=== PATIENT | female | born 1955 | race Caucasian/White ===

== ENCOUNTER → 2018-01-03 08:46 | Outpatient (CLI) | payer OTHER, SELFPAY ==
--- NOTE | 2018-01-03 | DI.US.S_ITS ---
PROCEDURE: US CAROTID DOPPLER BI INDICATIONS: BRUIT TECHNIQUE: Color and pulse Doppler interrogation was performed of both carotid systems, with image documentation and velocity measurements. COMPARISON: None. FINDINGS: Stenosis calculations are based on SRU (Society of Radiologists in Ultrasound) criteria. Right side: Brachial blood pressure: 159/87 mm Hg. Common carotid artery peak systolic velocity: 72 cm/sec. Internal carotid artery peak systolic velocity: 116 cm/sec. Internal carotid artery end diastolic velocity: 47 cm/sec. External carotid artery peak systolic velocity: 58 cm/sec. ICA/CCA peak systolic ratio: 1.6 Bowser scale imaging description: Moderate scattered plaque. Percent internal carotid artery stenosis: Less than 50%. Vertebral artery: Flow direction is antegrade. Left side: Brachial blood pressure: 126/82 mm Hg. Common carotid artery peak systolic velocity: 55 cm/sec. Internal carotid artery peak systolic velocity: 114 cm/sec. Internal carotid artery end diastolic velocity: 42 cm/sec. External carotid artery peak systolic velocity: 113 cm/sec. ICA/CCA peak systolic ratio: 2.1. Bowser scale imaging description: Moderate scattered plaque. Percent internal carotid artery stenosis: Less than 50%. Vertebral artery: Flow direction is antegrade. IMPRESSION: Less than 50% bilateral internal carotid artery stenosis. Dictated by: Cordell Howard [facility] Interpreted: Alicia Kaiser MD on 01/03/2018 at 13:29 Approved by: Alicia Kaiser M.D. on 01/03/2018 at 15:08
== END ==
PROVIDERS: Family Provider Family Medicine; PCP Family Medicine; Visit Provider Family Medicine
DX: R09.89 Other specified symptoms and signs involving the circulatory and respiratory systems (principal)
CPT/HCPCS: 93880

== ENCOUNTER → 2018-04-17 12:54 | Outpatient (CLI) | payer OTHER, SELFPAY ==
--- NOTE | 2018-04-17 09:20 | MSW.VISIT ---
[employer] Visit note - Data of Consult Patient: new to practice Primary Care Provider: Radhika Magana MD - Consult Narrative Narrative: Rosalia Lee is a 62 year old female CC: EDGAR Sharpe - Psychological Status Stressors: Interpersonal Home Medications: Home Medications Medication Instructions Recorded Confirmed Type OMEPRAZOLE 40 mg PO BID #0 04/14/13 02/15/18 History allopurinol 300 mg PO HS #0 04/14/13 02/15/18 History hydrocodone-acetaminophen 0 PO Q4HP PRN #160 tab 11/15/16 02/15/18 Rx [DIABETIC VITAMIN PK] Q DAY #0 05/01/17 02/15/18 History potassium gluconate 99 mg PO Q DAY #0 05/01/17 02/15/18 History gabapentin [Neurontin] 300 mg PO QDAY17 #2 cap 08/22/17 02/15/18 Rx insulin glargine [Lantus Solostar 30 unit SQ HS #10 u 08/22/17 02/15/18 Rx U-100 Insulin] daptomycin [Cubicin] IV TID #0 09/17/17 02/15/18 History meclizine 25 mg PO BID #20 tab 09/17/17 02/15/18 Rx meropenem [Merrem] IV TID #0 09/17/17 02/15/18 History atorvastatin [Lipitor] 40 mg PO QDAY #0 10/30/17 02/15/18 History Allergies/Adverse Reactions: Allergies Allergy/AdvReac Type Severity Reaction Status Date / Time tetanus and diphtheria Allergy Severe HOSPITALIZED Unverified 02/15/18 14:49 toxoids CHILD [tetanus & diphtheria toxoids] metoclopramide [From REGLAN] Allergy Intermediate Tremors Unverified 02/15/18 14:49 Penicillins Allergy Mild RASH Unverified 02/15/18 14:49 ciprofloxacin AdvReac Severe ACHILLES Unverified 02/15/18 14:49 TENDON RUPTURE levofloxacin AdvReac Severe ACHILLES Unverified 02/15/18 14:49 TENDON RUPTURE
[2018-04-17 13:34] LABS: Add Manual Diff / Slide Review NO; Basophils Percent Auto 0.5 % (0-2); Eosinophils Percent Auto 1.5 % (2-4); Hematocrit 35.9 % (36-46); Hemoglobin 11.9 g/dL (12.0-16.0); Lymphocytes Percent Auto 35.3 % (25-40); Mean Corpuscular HGB Conc 33.3 % (30-36); Mean Corpuscular Hemoglobin 30.4 PG (26-34); Mean Corpuscular Volume 91.3 fL (80-100); Monocytes Percent Auto 7.2 % (3-14); Neutrophils Absolute Auto 4100 /uL (3000-5900); Neutrophils Percent Auto 55.5 % (50-75); Platelet Count 259 X10^3/uL (150-400); Red Blood Cell Count 3.93 X10^6/uL (4.0-5.2); White Blood Cell Count 7.4 X10^3/uL (4.5-11.0)
[2018-04-17 13:40] LABS: Alanine Aminotransferase 49 IU/L (9-52); Albumin Globulin Ratio 1.4 (1.0-2.8); Alkaline Phosphatase 152 U/L (38-126); Aspartate Aminotransferase 60 IU/L (14-36); BUN Creatinine Ratio 42.2 (6-22); Bilirubin Total 0.4 mg/dL (0.2-1.3); Blood Urea Nitrogen 38 mg/dL (7-17); Calcium 9.1 mg/dL (8.4-10.2); Carbon Dioxide 33 mmol/L (22-32); Chloride 99 mmol/L (98-107); Estimated Glomerular Filt Rate > 60.0 mL/min (>60); Globulin 2.8 g/dL (1.7-4.1); Glucose 188 mg/dL (80-110); HEMOLYSIS < 15 (0-50); Potassium 4.2 mmol/L (3.4-5.1); Sodium 141 mmol/L (137-145); Total Protein 6.8 g/dL (6.3-8.2)
[2018-04-18 15:10] LABS: Free Kappa Light Chain 25.1 mg/L (3.3-19.4); Free Kappa/ Lambda Ratio 1.45 (0.26-1.65); Free Lambda 17.4 mg/L (5.7-26.3)
== END ==
PROVIDERS: Family Provider Family Medicine; PCP Family Medicine; Visit Provider Nurse Practitioner Gerontology
DX: D47.2 Monoclonal gammopathy (principal)
CPT/HCPCS: 36415; 80053; 83883; 85025

== ENCOUNTER → 2018-09-02 15:19 | Outpatient (CLI) | payer OTHER, SELFPAY | PROVIDERS: Family Provider Family Medicine; PCP Family Medicine; Visit Provider Family Medicine | DX: E11.621 Type 2 diabetes mellitus with foot ulcer (principal); L97.521 Non-pressure chronic ulcer of other part of left foot limited to breakdown of skin; E11.622 Type 2 diabetes mellitus with other skin ulcer; L97.421 Non-pressure chronic ulcer of left heel and midfoot limited to breakdown of skin | CPT/HCPCS: 11042; 99213; 99214 ==

== ENCOUNTER → 2018-09-09 14:38 | Outpatient (CLI) | payer OTHER, SELFPAY | PROVIDERS: Family Provider Family Medicine; PCP Family Medicine; Visit Provider Family Medicine | DX: E11.621 Type 2 diabetes mellitus with foot ulcer (principal); L97.521 Non-pressure chronic ulcer of other part of left foot limited to breakdown of skin; E11.622 Type 2 diabetes mellitus with other skin ulcer; L97.421 Non-pressure chronic ulcer of left heel and midfoot limited to breakdown of skin | CPT/HCPCS: 97597 ==

== ENCOUNTER → 2018-09-16 11:55 | Outpatient (CLI) | payer OTHER, SELFPAY | PROVIDERS: Family Provider Family Medicine; PCP Family Medicine; Visit Provider Podiatrist Primary Podiatric Medicine | DX: E11.621 Type 2 diabetes mellitus with foot ulcer (principal); L97.521 Non-pressure chronic ulcer of other part of left foot limited to breakdown of skin | CPT/HCPCS: 97597 ==

== ENCOUNTER 2018-10-01 13:13 | Emergency (ER) | payer OTHER, SELFPAY ==
[2018-10-01] VITALS (8 sets, daily range): BP systolic 100–176; BP diastolic 57–80; PULSE 85–106; RESP 17–24; TEMP 37.7–38.4; O2SAT 90–98; BMI 36.6
--- NOTE | 2018-10-01 13:20 | DI.RAD.S_ITS ---
PROCEDURE: XR CHEST 1V INDICATIONS: chest pain TECHNIQUE: One view of the chest was acquired. COMPARISON: [facility], , CHEST 1 VIEW, 09/17/2017, 13:48. FINDINGS: Surgical changes and devices: There are cholecystectomy clips in the right upper quadrant. Lungs and pleura: Lungs are clear. No pleural effusions or pneumothorax. Mediastinum: Mediastinal contours appear normal. Heart size is borderline enlarged. Bones and chest wall: No suspicious bony lesions. Overlying soft tissues appear unremarkable. IMPRESSION: 1. No acute cardiopulmonary disease. Dictated by: Alex Chaudhary M.D. on 10/01/2018 at 14:13 Approved by: Alex Chaudhary M.D. on 10/01/2018 at 14:17
--- NOTE | 2018-10-01 13:33 | ED.CHESTPAIN ---
HPI - Chest Pain General Chief Complaint: Chest Pain Stated Complaint: CHEST PAIN Time Seen by Provider: 10/01/18 13:31 Related Data Home Medications Medication Instructions Recorded Confirmed OMEPRAZOLE 40 mg PO BID #0 04/14/13 02/15/18 allopurinol 300 mg PO HS #0 04/14/13 02/15/18 [DIABETIC VITAMIN PK] Q DAY #0 05/01/17 02/15/18 potassium gluconate 99 mg PO Q DAY #0 05/01/17 02/15/18 atorvastatin [Lipitor] 40 mg PO QDAY #0 10/30/17 02/15/18 gabapentin [Neurontin] 600 mg PO QDAY17 04/23/18 04/23/18 insulin glargine [Lantus Solostar 42 unit SQ HS 04/23/18 04/23/18 U-100 Insulin] Previous Rx's Medication Instructions Recorded hydrocodone-acetaminophen 0 PO Q4HP PRN #160 tab 11/15/16 Allergies Allergy/AdvReac Type Severity Reaction Status Date / Time tetanus and diphtheria Allergy Severe HOSPITALIZED Verified 10/01/18 13:15 toxoids CHILD [tetanus & diphtheria toxoids] metoclopramide [From REGLAN] Allergy Intermediate Tremors Verified 10/01/18 13:15 Penicillins Allergy Mild RASH Verified 10/01/18 13:15 ciprofloxacin AdvReac Severe ACHILLES Verified 10/01/18 13:15 TENDON RUPTURE levofloxacin AdvReac Severe ACHILLES Verified 10/01/18 13:15 TENDON RUPTURE PFSH Medical History Depression (Acute) Social History Smoking Status: Never smoker Social History Smoking Status: Never smoker Exam Initial Vital Signs Initial Vital Signs: Vital Signs Temperature 101.2 F H 10/01/18 13:15 Pulse Rate 105 H 10/01/18 13:15 Respiratory Rate 24 10/01/18 13:15 Blood Pressure 176/80 H 10/01/18 13:15 Pulse Oximetry 95 10/01/18 13:15 Course Orders Ordered: ED Orders 10/01/18 13:20 XR chest 1V Stat EKG-12 Lead Stat 10/01/18 13:25 Complete Blood Count AUTO DIFF Stat Comprehensive Metabolic Panel Stat Lipase Stat Partial Thromboplastin Time Stat Prothrombin Time INR Stat Troponin & CK Cardiac Panel Stat Vital Signs - 8 hr 10/01/18 13:15 Temperature 101.2 F H Pulse Rate 105 H Respiratory Rate 24 Blood Pressure 176/80 H Pulse Oximetry 95 MDM - Chest Pain Lab Data Result diagrams: 10/01/18 13:25 10/01/18 13:25 Discharge Plan Departure Prescriptions: No Action allopurinol 300 MG tablet 300 mg PO HS Qty: 0 RF: 0 OMEPRAZOLE 40 mg PO BID Qty: 0 RF: 0 hydrocodone-acetaminophen 7.5 MG/325 MG tablet PO Q4HP PRNQty: 160 RF: 0 potassium gluconate 99 MG tablet 99 mg PO Q DAY Qty: 0 RF: 0 [DIABETIC VITAMIN PK] Q DAY Qty: 0 RF: 0 atorvastatin [Lipitor] 40 MG tablet 40 mg PO QDAY Qty: 0 RF: 0 gabapentin [Neurontin] 300 MG capsule 600 mg PO QDAY17 RF: 0 insulin glargine [Lantus Solostar U-100 Insulin] 100 UNIT/1 ML insulin pen 42 unit SQ HS RF: 0 Referrals: Radhika Magana MD [Primary Care Provider] -
[2018-10-01 13:34] LABS: Add Manual Diff / Slide Review NO; Basophils Absolute Auto 0 /uL (0-100); Basophils Percent Auto 0.5 % (0-2); Eosinophils Absolute Auto 100 /uL (0-450); Eosinophils Percent Auto 0.5 % (2-4); Hematocrit 37.3 % (36-46); Lymphocytes Absolute Auto 1700 /uL (1100-4500); Lymphocytes Percent Auto 16.5 % (25-40); Mean Corpuscular HGB Conc 32.1 % (30-36); Mean Corpuscular Hemoglobin 29.2 PG (26-34); Mean Corpuscular Volume 90.7 fL (80-100); Monocytes Absolute Auto 1000 /uL (0-900); Monocytes Percent Auto 9.5 % (3-14); Neutrophils Absolute Auto 7600 /uL (1500-7000); Platelet Count 300 X10^3/uL (150-400); Red Blood Cell Count 4.11 X10^6/uL (4.0-5.2); Red Cell Distribution Width 17.2 % (11.6-14.8); White Blood Cell Count 10.4 X10^3/uL (4.5-11.0)
[2018-10-01 13:41] LABS: Prothrombin Time 11.4 SECONDS (10.1-12.7)
[2018-10-01 13:44] LABS: PTT Partial Thromboplastin Tim 30 SECONDS (26.4-36.2)
[2018-10-01 13:47] LABS: Alanine Aminotransferase 26 IU/L (9-52); Albumin 4.3 g/dL (3.5-5.0); Albumin Globulin Ratio 1.3 (1.0-2.8); Alkaline Phosphatase 139 U/L (38-126); Aspartate Aminotransferase 19 IU/L (14-36); BUN Creatinine Ratio 25.6 (6-22); Bilirubin Total 0.6 mg/dL (0.2-1.3); Blood Urea Nitrogen 23 mg/dL (7-17); Calcium 9.1 mg/dL (8.4-10.2); Carbon Dioxide 26 mmol/L (22-32); Chloride 97 mmol/L (98-107); Creatine Kinase 24 U/L (30-135); Estimated Glomerular Filt Rate > 60.0 mL/min (>60); Globulin 3.3 g/dL (1.7-4.1); Glucose 169 mg/dL (80-110); HEMOLYSIS < 15 (0-50); Lipase 13 U/L (23-300); Potassium 3.6 mmol/L (3.4-5.1); Sodium 138 mmol/L (137-145); Total Protein 7.6 g/dL (6.3-8.2)
[2018-10-01 13:55] LABS: D Dimer 396 ng/mL (<230)
[2018-10-01 13:58] LABS: Troponin I < 0.012 ng/mL (0.01-0.034)
--- NOTE | 2018-10-01 14:08 | DI.CT.S_ITS ---
PROCEDURE: CT ANGIO CHEST PE PROTOCOL INDICATIONS: sharp pain, shortness of breath, radiation to back, CA patient TECHNIQUE: After the administration of intravenous contrast, 2 mm thick sections acquired from the pulmonary apices to the posterior costophrenic angles. 3-dimensional maximum intensity projection (MIP) coronal and sagittal reformats were then acquired through the thorax. For radiation dose reduction, the following was used: automated exposure control, adjustment of mA and/or kV according to patient size. COMPARISON: [facility], CT, PELVIS WITHOUT CONTRAST, 01/05/2017, 14:02. [facility], CT, CHEST ABDOMEN PELVIS WITH CONTRAST, 05/12/2011, 8:47. [facility], CR, CHEST 1 VIEW, 09/17/2017, 13:48. FINDINGS: Image quality: Excellent. Pulmonary arteries: Pulmonary arteries are normal in size, and demonstrate no intraluminal filling defects to suggest central pulmonary embolism. Evaluation of subsegmental branches is limited by suboptimal contrast opacification. Lungs and pleura: There is mild dependent atelectasis. No focal consolidation. There is a minimal left pleural effusion. Central and peripheral airways are patent. Mediastinum: Heart size is normal, without pericardial effusion. No mediastinal or hilar adenopathy. Thoracic aorta is normal in caliber and enhancement. Esophagus is normal in caliber, without hiatal hernia. Bones and chest wall: No suspicious bony lesions. Ribs and thoracic spine appear intact throughout. Thyroid gland demonstrates no discrete nodules. No axillary or supraclavicular adenopathy. Abdomen: Visualized upper abdominal solid organs appear normal in the early arterial phase of enhancement. IMPRESSION: 1. No evidence of central pulmonary embolism, with evaluation of subsegmental branches limited by suboptimal contrast opacification. 2. Minimal left pleural effusion with mild basilar dependent atelectasis. No focal consolidation. Dictated by: Alex Chaudhary M.D. on 10/01/2018 at 14:28 Approved by: Alex Chaudhary M.D. on 10/01/2018 at 14:44
--- NOTE | 2018-10-01 15:29 | ED.CHESTPAIN ---
HPI - Chest Pain General Chief Complaint: Chest Pain Stated Complaint: CHEST PAIN Time Seen by Provider: 10/01/18 13:31 Source: patient and family Mode of arrival: ambulatory Limitations: no limitations History of Present Illness HPI narrative: 63-year-old female, nonsmoker with history of diabetes presents with her and a chief complaint of sharp and stabbing anterior chest pain with radiation to her back. This started last night and continues today. Her pain is worse with inspiration or motion. She is not dizzy nor weak or lightheaded. She denies fever or shaking chills. She does have a history of uterine cancer years ago and this seems to be her only risk for PE she denies any recent travel, injury or surgeries. MD complaint: chest pain Onset (ago): day(s) Duration: intermittent Pain location: substernal Severity: mild Quality: sharp Pain radiation: back Relieving factors: remaining still Exacerbating factors: inspiration, palpation and movement Treatments prior to arrival chest pain: none Related Data On Oral Contraceptives: No Home Medications Medication Instructions Recorded Confirmed allopurinol 300 mg PO BEDTIME #0 04/14/13 10/01/18 omeprazole 40 mg PO BID #0 04/14/13 10/01/18 [DIABETIC VITAMIN PK] Q DAY #0 05/01/17 02/15/18 potassium gluconate 99 mg PO Q DAY #0 05/01/17 02/15/18 gabapentin [Neurontin] 600 mg PO QDAY17 04/23/18 10/01/18 insulin glargine [Lantus Solostar 42 unit SQ HS 04/23/18 04/23/18 U-100 Insulin] atorvastatin 20 mg PO DAILY 10/01/18 10/01/18 estradiol [Climara] 1 patch TOPICAL WEEKLY 10/01/18 10/01/18 furosemide 20 mg PO DAILY 10/01/18 10/01/18 hydrocodone-acetaminophen 0 PO Q4HP PRN 10/01/18 insulin lispro [Humalog KwikPen 10/01/18 Insulin] tizanidine 4 mg PO DAILY 10/01/18 10/01/18 Allergies Allergy/AdvReac Type Severity Reaction Status Date / Time tetanus and diphtheria Allergy Severe HOSPITALIZED Verified 10/01/18 13:15 toxoids CHILD [tetanus & diphtheria toxoids] metoclopramide [From REGLAN] Allergy Intermediate Tremors Verified 10/01/18 13:15 Penicillins Allergy Mild RASH Verified 10/01/18 13:15 ciprofloxacin AdvReac Severe ACHILLES Verified 10/01/18 13:15 TENDON RUPTURE levofloxacin AdvReac Severe ACHILLES Verified 10/01/18 13:15 TENDON RUPTURE Review of Systems Constitutional Denies chills, Denies fever(s), Denies lethargy and Denies weakness Eyes Denies change in vision, Denies eye discharge, Denies irritation and Denies loss of vision ENT Ears, Nose, Mouth, and Throat: Denies change in voice, Denies neck pain and Denies sore throat Cardiovascular Reports chest pain, Denies irregular heart rhythm, Denies lightheadedness, Denies palpitations, Denies dyspnea, Denies dyspnea on exertion and Denies orthopnea Respiratory Denies cough, Reports pain on inspiration, Denies dyspnea, Denies dyspnea on exertion and Denies wheezing Gastrointestinal Gastrointestinal: Denies abdominal pain, Denies change in bowel habits, Denies diarrhea, Denies nausea and Denies vomiting Genitourinary Denies hematuria, Denies flank pain, Denies urinary incontinence and Denies urinary urgency Musculoskeletal Denies neck pain Integumentary/Breasts Denies pruritus, Denies erythema, Denies rash and Denies wounds Neurologic Denies confusion, Denies loss of vision and Denies weakness Psychiatric Denies anxiety, Denies confusion, Denies depression, Denies homicidal ideation and Denies suicidal ideation Endocrine Denies palpitations Hematologic/Lymphatic Denies easy bruising Allergic/Immunologic Denies wheezing PFSH Medical History Depression (Acute) Social History Smoking Status: Never smoker Social History Smoking Status: Never smoker Exam Narrative Exam Narrative: GENERAL: This is a well-nourished, well-developed patient, in mild distress. HEAD: Atraumatic. Normocephalic. No temporal or scalp tenderness. EYES: Pupils equal round and reactive. Extraocular motions intact. No scleral icterus. No injection or drainage. ENT: Nose without bleeding, purulent drainage or septal hematoma. Throat without erythema, tonsillar hypertrophy or exudate. Uvula midline. Airway patent. NECK: Trachea midline. No JVD or lymphadenopathy. Supple, nontender, no meningeal signs. CARDIOVASCULAR: Regular rate and rhythm without murmurs, gallops, or rubs. RESPIRATORY: Clear to auscultation. Breath sounds equal bilaterally. No wheezes, rales, or rhonchi. GASTROINTESTINAL: Abdomen soft, non-tender, nondistended. No hepato-splenomegaly, or palpable masses. No guarding. EXTREMITIES: No clubbing, cyanosis, or edema. No joint tenderness, effusion, or edema noted. BACK: Nontender without deformity or crepitance. No flank tenderness. NEURO: AOx3. SKIN: No rash or erythema. Initial Vital Signs Initial Vital Signs: Vital Signs Temperature 101.2 F H 10/01/18 13:15 Pulse Rate 105 H 10/01/18 13:15 Respiratory Rate 24 10/01/18 13:15 Blood Pressure 176/80 H 10/01/18 13:15 Pulse Oximetry 95 10/01/18 13:15 Scores HEART Score Heart Score history: Slightly Suspicious Heart Score EKG: Normal Heart Score Age: 45-64 years old Heart Score risk factors: 1-2 risk factors Heart Score troponin: < or = to normal limit Heart Score Total: 2 PERC Score Age greater than or equal to 50 years: Yes Heart rate greater than or equal to 100 bpm: No Room Air O2 Sat less than 95%: No Unilateral leg swelling: No Recent trauma or surgery: No Hemoptysis: No Prior PE or DVT: No Hormone Use: No Total PERC Score: 1 Wells' Criteria for PE Clinical signs and symptoms of PE: No PE is #1 Dx or equally likely: No Heart rate > 100: No Immobilization at least 3 days or surg in previous 4 weeks: No History of PE or DVT: No Hemoptysis: No Malignancy w/Treatment within 6 months or palliative: No Wells' PE Score total: 0 Course Orders Ordered: ED Orders 10/01/18 13:20 XR chest 1V Stat EKG-12 Lead Stat 10/01/18 13:25 Complete Blood Count AUTO DIFF Stat Comprehensive Metabolic Panel Stat D Dimer Stat Lipase Stat Partial Thromboplastin Time Stat Prothrombin Time INR Stat Troponin & CK Cardiac Panel Stat 10/01/18 14:08 CT angio chest PE protocol Stat 10/01/18 15:51 Influenza A and B by PCR Rapid Stat Discontinued Medications Ketorolac Tromethamine (Toradol) 15 mg IV NOW ONE Stop: 10/01/18 15:44 Last Admin: 10/01/18 15:50 Dose: 15 mg Consultations Consultation #1: Wells criteria and clinical just all to suggest low risk, patient is positive for perc and D-dimer slightly positive therefore CT angiogram order to rule out PE Vital Signs - 8 hr 10/01/18 13:15 10/01/18 13:25 10/01/18 14:30 Temperature 101.2 F H 100.5 F H Pulse Rate 105 H 106 H 91 H Respiratory Rate 24 18 19 Blood Pressure 176/80 H Blood Pressure [Left Wrist] 176/71 H 100/60 Pulse Oximetry 95 98 91 10/01/18 15:00 10/01/18 15:29 10/01/18 15:30 Temperature 99.9 F H Pulse Rate 91 H 93 H Respiratory Rate 18 19 Blood Pressure Blood Pressure [Left Wrist] 104/66 156/73 H Pulse Oximetry 91 96 10/01/18 15:50 10/01/18 16:00 Temperature 99.9 F H Pulse Rate 85 Respiratory Rate 17 Blood Pressure Blood Pressure [Left Wrist] 126/57 L Pulse Oximetry 90 L MDM - Chest Pain Medical Records Data Attestation: I reviewed the patient's medical records. Lab Data Attestation: I reviewed the patient's lab results. Result diagrams: 10/01/18 13:25 10/01/18 13:25 Lab Results 10/01/18 10/01/18 10/01/18 Range/Units 13:25 13:25 13:25 WBC 10.4 (4.5-11.0) X10^3/uL RBC 4.11 (4.0-5.2) X10^6/uL Hgb 12.0 (12.0-16.0) g/dL Hct 37.3 (36-46) % MCV 90.7 (80-100) fL MCH 29.2 (26-34) PG MCHC 32.1 (30-36) % RDW 17.2 H (11.6-14.8) % Plt Count 300 (150-400) X10^3/uL Neut % (Auto) 73.0 (50-75) % Lymph % (Auto) 16.5 L (25-40) % Emery % (Auto) 9.5 (3-14) % Eos % (Auto) 0.5 L (2-4) % Baso % (Auto) 0.5 (0-2) % Neut # (Auto) 7600 H (9981-1162) /uL Lymph # (Auto) 1700 (6172-5833) /uL Emery # (Auto) 1000 H (0-900) /uL Eos # (Auto) 100 (0-450) /uL Baso # (Auto) 0 (0-100) /uL PT 11.4 (10.1-12.7) SECONDS INR 1.0 (0.9-1.3) APTT 30 (26.4-36.2) SECONDS D-Dimer (<230) ng/mL Sodium 138 (137-145) mmol/L Potassium 3.6 (3.4-5.1) mmol/L Chloride 97 L (98-107) mmol/L Carbon Dioxide 26 (22-32) mmol/L BUN 23 H (7-17) mg/dL Creatinine 0.90 (0.52-1.04) mg/dL Estimated GFR > 60.0 (>60) mL/min BUN/Creatinine Ratio 25.6 H (6-22) Glucose 169 H (80-110) mg/dL Calcium 9.1 (8.4-10.2) mg/dL Total Bilirubin 0.6 (0.2-1.3) mg/dL AST 19 (14-36) IU/L ALT 26 (9-52) IU/L Alkaline Phosphatase 139 H (38-126) U/L Total Creatine Kinase 24 L (30-135) U/L CK-MB (CK-2) TNP CK-MB (CK-2) Rel Index TNP Troponin I < 0.012 (0.01-0.034) ng/mL Total Protein 7.6 (6.3-8.2) g/dL Albumin 4.3 (3.5-5.0) g/dL Globulin 3.3 (1.7-4.1) g/dL Albumin/Globulin Ratio 1.3 (1.0-2.8) Lipase 13 L (23-300) U/L Influenza A & B (PCR) (Negative) 10/01/18 10/01/18 Range/Units 13:25 15:51 WBC (4.5-11.0) X10^3/uL RBC (4.0-5.2) X10^6/uL Hgb (12.0-16.0) g/dL Hct (36-46) % MCV (80-100) fL MCH (26-34) PG MCHC (30-36) % RDW (11.6-14.8) % Plt Count (150-400) X10^3/uL Neut % (Auto) (50-75) % Lymph % (Auto) (25-40) % Emery % (Auto) (3-14) % Eos % (Auto) (2-4) % Baso % (Auto) (0-2) % Neut # (Auto) (0443-9913) /uL Lymph # (Auto) (9498-3829) /uL Emery # (Auto) (0-900) /uL Eos # (Auto) (0-450) /uL Baso # (Auto) (0-100) /uL PT (10.1-12.7) SECONDS INR (0.9-1.3) APTT (26.4-36.2) SECONDS D-Dimer 396 H (<230) ng/mL Sodium (137-145) mmol/L Potassium (3.4-5.1) mmol/L Chloride (98-107) mmol/L Carbon Dioxide (22-32) mmol/L BUN (7-17) mg/dL Creatinine (0.52-1.04) mg/dL Estimated GFR (>60) mL/min BUN/Creatinine Ratio (6-22) Glucose (80-110) mg/dL Calcium (8.4-10.2) mg/dL Total Bilirubin (0.2-1.3) mg/dL AST (14-36) IU/L ALT (9-52) IU/L Alkaline Phosphatase (38-126) U/L Total Creatine Kinase (30-135) U/L CK-MB (CK-2) CK-MB (CK-2) Rel Index Troponin I (0.01-0.034) ng/mL Total Protein (6.3-8.2) g/dL Albumin (3.5-5.0) g/dL Globulin (1.7-4.1) g/dL Albumin/Globulin Ratio (1.0-2.8) Lipase (23-300) U/L Influenza A & B (PCR) Negative (Negative) Urine Dip Bedside Urine Glucose 100 mg/dl Bedside Urine Ketone +/- 5 Urine Specific Ozan 1.020 Bedside Urine Occult Blood - Negative Bedside Urine pH 5.5 Bedside Urine Protein - Negative Bedside Urine Urobilinogen - Negative Bedside Urine Nitrite - Negative Bedside Urine Leukocytes - Negative Esterase Imaging Data CT scan - chest: Radiologist's impression: [address] [address] [address] Scan Report Signed Patient: Rosalia Lee MMR#: [id number] : 5Acct:[id number] Age/Sex: 63 / FDate of Service: 10/01/18 Loc: ED Accession Number: [id number] Procedure: CT angio chest PE protocol Ordering Provider: Brent Carpenter D.O. PROCEDURE: CT ANGIO CHEST PE PROTOCOL INDICATIONS: sharp pain, shortness of breath, radiation to back, CA patient TECHNIQUE: After the administration of intravenous contrast, 2 mm thick sections acquired from the pulmonary apices to the posterior costophrenic angles. 3-dimensional maximum intensity projection (MIP) coronal and sagittal reformats were then acquired through the thorax. For radiation dose reduction, the following was used: automated exposure control, adjustment of mA and/or kV according to patient size. COMPARISON: [facility], CT, PELVIS WITHOUT CONTRAST, 01/05/2017, 14:02. [facility], CT, CHEST ABDOMEN PELVIS WITH CONTRAST, 05/12/2011, 8:47. [facility], CR, CHEST 1 VIEW, 09/17/2017, 13:48. FINDINGS: Image quality: Excellent. Pulmonary arteries: Pulmonary arteries are normal in size, and demonstrate no intraluminal filling defects to suggest central pulmonary embolism. Evaluation of subsegmental branches is limited by suboptimal contrast opacification. Lungs and pleura: There is mild dependent atelectasis. No focal consolidation. There is a minimal left pleural effusion. Central and peripheral airways are patent. Mediastinum: Heart size is normal, without pericardial effusion. No mediastinal or hilar adenopathy. Thoracic aorta is normal in caliber and enhancement. Esophagus is normal in caliber, without hiatal hernia. Bones and chest wall: No suspicious bony lesions. Ribs and thoracic spine appear intact throughout. Thyroid gland demonstrates no discrete nodules. No axillary or supraclavicular adenopathy. Abdomen: Visualized upper abdominal solid organs appear normal in the early arterial phase of enhancement. IMPRESSION: 1. No evidence of central pulmonary embolism, with evaluation of subsegmental branches limited by suboptimal contrast opacification. 2. Minimal left pleural effusion with mild basilar dependent atelectasis. No focal consolidation. Dictated by: Alex Chaudhary M.D. on 10/01/2018 at 14:28 Approved by: Alex Chaudhary M.D. on 10/01/2018 at 14:44 [facility] Narrative Medical decision making narrative: Multiple etiologies for patient's symptoms considered including: [Myocardial infarction but thought less likely given nonischemic complaint, sharp and stabbing with reproduction, normal troponin and normal EKG. Pulmonary embolism considered given cancer history, pleuritic-type description of pain and shortness of breath but thought less likely given negative CT angiogram. Pneumonia considered but thought less likely given lack of findings on imaging or sputum production. Flu considered but thought less likely given lack of fever, chills, headache or sore throat Patient's symptoms improved or duration of stay with above-stated therapies. Findings and discharge diagnosis discussed with patient/family followed by verbalization of understanding Return precautions discussed with patient/family whom verbalize understanding. Discharge Plan Departure Patient Disposition: Home Clinical Impression: Chest pain, pleuritic Discharge Date/Time: 10/01/18 16:21 Interventions: ED Discharge Assessment Last Done: 10/01/18 16:20 Instructions: DI for Atypical Chest Pain Activity Restrictions/Additional Instructions: *You have been diagnosed with [ atypical, pleuritic-type chest pain ] *What to do: *Take medications as directed *Follow up with your primary care provider in 2-3 days, call for an appointment. Let them know you were seen in the Emergency Department and that we ask that you be seen in follow up *Return to ER if you should have any new, worsening or concerning symptoms, such as [worsening pain, shortness of breath, fever or shaking chills, other bothersome symptoms ] Prescriptions: No Action omeprazole 40 mg Capsule,Delayed Release(Dr/Ec) 40 mg PO BID Qty: 0 RF: 0 allopurinol 300 MG tablet 300 mg PO BEDTIME Qty: 0 RF: 0 potassium gluconate 99 MG tablet 99 mg PO Q DAY Qty: 0 RF: 0 [DIABETIC VITAMIN PK] Q DAY Qty: 0 RF: 0 gabapentin [Neurontin] 300 MG capsule 600 mg PO QDAY17 RF: 0 insulin glargine [Lantus Solostar U-100 Insulin] 100 UNIT/1 ML insulin pen 42 unit SQ HS RF: 0 atorvastatin 20 mg tablet 20 mg PO DAILY RF: 0 tizanidine 4 mg tablet 4 mg PO DAILY RF: 0 estradiol [Climara] 0.05 mg/24 hr patch weekly 1 patch Topical WEEKLY RF: 0 furosemide 20 mg tablet 20 mg PO DAILY RF: 0 Humalog KwikPen Insulin 100 unit/mL insulin pen RF: 0 hydrocodone-acetaminophen 7.5 MG/325 MG tablet PO Q4HP PRN (Reason: pain) RF: 0 Referrals: Radhika Magana MD [Primary Care Provider] -
--- NOTE | 2018-10-01 15:36 | ED_ITS ---
HPI - Chest Pain General Chief Complaint: Chest Pain Stated Complaint: CHEST PAIN Time Seen by Provider: 10/01/18 13:31 Source: patient and family Mode of arrival: ambulatory Limitations: no limitations History of Present Illness HPI narrative: 63-year-old female, nonsmoker with history of diabetes presents with her and a chief complaint of sharp and stabbing anterior chest pain with radiation to her back. This started last night and continues today. Her pain is worse with inspiration or motion. She is not dizzy nor weak or lightheaded. She denies fever or shaking chills. She does have a history of uterine cancer years ago and this seems to be her only risk for PE she denies any recent travel, injury or surgeries. MD complaint: chest pain Onset (ago): day(s) Duration: intermittent Pain location: substernal Severity: mild Quality: sharp Pain radiation: back Relieving factors: remaining still Exacerbating factors: inspiration, palpation and movement Treatments prior to arrival chest pain: none Related Data On Oral Contraceptives: No Home Medications Medication Instructions Recorded Confirmed allopurinol 300 mg PO BEDTIME #0 04/14/13 10/01/18 omeprazole 40 mg PO BID #0 04/14/13 10/01/18 [DIABETIC VITAMIN PK] Q DAY #0 05/01/17 02/15/18 potassium gluconate 99 mg PO Q DAY #0 05/01/17 02/15/18 gabapentin [Neurontin] 600 mg PO QDAY17 04/23/18 10/01/18 insulin glargine [Lantus Solostar 42 unit SQ HS 04/23/18 04/23/18 U-100 Insulin] atorvastatin 20 mg PO DAILY 10/01/18 10/01/18 estradiol [Climara] 1 patch TOPICAL WEEKLY 10/01/18 10/01/18 furosemide 20 mg PO DAILY 10/01/18 10/01/18 hydrocodone-acetaminophen 0 PO Q4HP PRN 10/01/18 insulin lispro [Humalog KwikPen 10/01/18 Insulin] tizanidine 4 mg PO DAILY 10/01/18 10/01/18 Allergies Allergy/AdvReac Type Severity Reaction Status Date / Time tetanus and diphtheria Allergy Severe HOSPITALIZED Verified 10/01/18 13:15 toxoids CHILD [tetanus & diphtheria toxoids] metoclopramide [From REGLAN] Allergy Intermediate Tremors Verified 10/01/18 13:15 Penicillins Allergy Mild RASH Verified 10/01/18 13:15 ciprofloxacin AdvReac Severe ACHILLES Verified 10/01/18 13:15 TENDON RUPTURE levofloxacin AdvReac Severe ACHILLES Verified 10/01/18 13:15 TENDON RUPTURE Review of Systems Constitutional Denies chills, Denies fever(s), Denies lethargy and Denies weakness Eyes Denies change in vision, Denies eye discharge, Denies irritation and Denies loss of vision ENT Ears, Nose, Mouth, and Throat: Denies change in voice, Denies neck pain and Denies sore throat Cardiovascular Reports chest pain, Denies irregular heart rhythm, Denies lightheadedness, Denies palpitations, Denies dyspnea, Denies dyspnea on exertion and Denies orthopnea Respiratory Denies cough, Reports pain on inspiration, Denies dyspnea, Denies dyspnea on exertion and Denies wheezing Gastrointestinal Gastrointestinal: Denies abdominal pain, Denies change in bowel habits, Denies diarrhea, Denies nausea and Denies vomiting Genitourinary Denies hematuria, Denies flank pain, Denies urinary incontinence and Denies urinary urgency Musculoskeletal Denies neck pain Integumentary/Breasts Denies pruritus, Denies erythema, Denies rash and Denies wounds Neurologic Denies confusion, Denies loss of vision and Denies weakness Psychiatric Denies anxiety, Denies confusion, Denies depression, Denies homicidal ideation and Denies suicidal ideation Endocrine Denies palpitations Hematologic/Lymphatic Denies easy bruising Allergic/Immunologic Denies wheezing PFSH Medical History Depression (Acute) Social History Smoking Status: Never smoker Social History Smoking Status: Never smoker Exam Narrative Exam Narrative: GENERAL: This is a well-nourished, well-developed patient, in mild distress. HEAD: Atraumatic. Normocephalic. No temporal or scalp tenderness. EYES: Pupils equal round and reactive. Extraocular motions intact. No scleral icterus. No injection or drainage. ENT: Nose without bleeding, purulent drainage or septal hematoma. Throat without erythema, tonsillar hypertrophy or exudate. Uvula midline. Airway patent. NECK: Trachea midline. No JVD or lymphadenopathy. Supple, nontender, no mening eal signs. CARDIOVASCULAR: Regular rate and rhythm without murmurs, gallops, or rubs. RESPIRATORY: Clear to auscultation. Breath sounds equal bilaterally. No wheezes, rales, or rhonchi. GASTROINTESTINAL: Abdomen soft, non-tender, nondistended. No hepato- splenomegaly, or palpable masses. No guarding. EXTREMITIES: No clubbing, cyanosis, or edema. No joint tenderness, effusion, or edema noted. BACK: Nontender without deformity or crepitance. No flank tenderness. NEURO: AOx3. SKIN: No rash or erythema. Initial Vital Signs Initial Vital Signs: Vital Signs Temperature 101.2 F H 10/01/18 13:15 Pulse Rate 105 H 10/01/18 13:15 Respiratory Rate 24 10/01/18 13:15 Blood Pressure 176/80 H 10/01/18 13:15 Pulse Oximetry 95 10/01/18 13:15 Scores HEART Score Heart Score history: Slightly Suspicious Heart Score EKG: Normal Heart Score Age: 45-64 years old Heart Score risk factors: 1-2 risk factors Heart Score troponin: < or = to normal limit Heart Score Total: 2 PERC Score Age greater than or equal to 50 years: Yes Heart rate greater than or equal to 100 bpm: No Room Air O2 Sat less than 95%: No Unilateral leg swelling: No Recent trauma or surgery: No Hemoptysis: No Prior PE or DVT: No Hormone Use: No Total PERC Score: 1 Wells' Criteria for PE Clinical signs and symptoms of PE: No PE is #1 Dx or equally likely: No Heart rate > 100: No Immobilization at least 3 days or surg in previous 4 weeks: No History of PE or DVT: No Hemoptysis: No Malignancy w/Treatment within 6 months or palliative: No Wells' PE Score total: 0 Course Orders Ordered: ED Orders 10/01/18 13:20 XR chest 1V Stat EKG-12 Lead Stat 10/01/18 13:25 Complete Blood Count AUTO DIFF Stat Comprehensive Metabolic Panel Stat D Dimer Stat Lipase Stat Partial Thromboplastin Time Stat Prothrombin Time INR Stat Troponin & CK Cardiac Panel Stat 10/01/18 14:08 CT angio chest PE protocol Stat 10/01/18 15:51 Influenza A and B by PCR Rapid Stat Discontinued Medications Ketorolac Tromethamine (Toradol) 15 mg IV NOW ONE Stop: 10/01/18 15:44 Last Admin: 10/01/18 15:50 Dose: 15 mg Consultations Consultation #1: Wells criteria and clinical just all to suggest low risk, patient is positive for perc and D-dimer slightly positive therefore CT angiogram order to rule out PE Vital Signs - 8 hr 10/01/18 13:15 10/01/18 13:25 10/01/18 14:30 Temperature 101.2 F H 100.5 F H Pulse Rate 105 H 106 H 91 H Respiratory Rate 24 18 19 Blood Pressure 176/80 H Blood Pressure [Left Wrist] 176/71 H 100/60 Pulse Oximetry 95 98 91 10/01/18 15:00 10/01/18 15:29 10/01/18 15:30 Temperature 99.9 F H Pulse Rate 91 H 93 H Respiratory Rate 18 19 Blood Pressure Blood Pressure [Left Wrist] 104/66 156/73 H Pulse Oximetry 91 96 10/01/18 15:50 10/01/18 16:00 Temperature 99.9 F H Pulse Rate 85 Respiratory Rate 17 Blood Pressure Blood Pressure [Left Wrist] 126/57 L Pulse Oximetry 90 L MDM - Chest Pain Medical Records Data Attestation: I reviewed the patient's medical records. Lab Data Attestation: I reviewed the patient's lab results. Result diagrams: 10/01/18 13:25 10/01/18 13:25 Lab Results 10/01/18 10/01/18 10/01/18 Range/Units 13:25 13:25 13:25 WBC 10.4 (4.5-11.0) X10^3/uL RBC 4.11 (4.0-5.2) X10^6/uL Hgb 12.0 (12.0-16.0) g/dL Hct 37.3 (36-46) % MCV 90.7 (80-100) fL MCH 29.2 (26-34) PG MCHC 32.1 (30-36) % RDW 17.2 H (11.6-14.8) % Plt Count 300 (150-400) X10^3/uL Neut % (Auto) 73.0 (50-75) % Lymph % (Auto) 16.5 L (25-40) % [place] % (Auto) 9.5 (3-14) % Eos % (Auto) 0.5 L (2-4) % Baso % (Auto) 0.5 (0-2) % Neut # (Auto) 7600 H (0159-4948) /uL Lymph # (Auto) 1700 (3668-9485) /uL [place] # (Auto) 1000 H (0-900) /uL Eos # (Auto) 100 (0-450) /uL Baso # (Auto) 0 (0-100) /uL PT 11.4 (10.1-12.7) SECONDS INR 1.0 (0.9-1.3) APTT 30 (26.4-36.2) SECONDS D-Dimer (<230) ng/mL Sodium 138 (137-145) mmol/L Potassium 3.6 (3.4-5.1) mmol/L Chloride 97 L (98-107) mmol/L Carbon Dioxide 26 (22-32) mmol/L BUN 23 H (7-17) mg/dL Creatinine 0.90 (0.52-1.04) mg/dL Estimated GFR > 60.0 (>60) mL/min BUN/Creatinine Ratio 25.6 H (6-22) Glucose 169 H (80-110) mg/dL Calcium 9.1 (8.4-10.2) mg/dL Total Bilirubin 0.6 (0.2-1.3) mg/dL AST 19 (14-36) IU/L ALT 26 (9-52) IU/L Alkaline Phosphatase 139 H (38-126) U/L Total Creatine Kinase 24 L (30-135) U/L CK-MB (CK-2) TNP CK-MB (CK-2) Rel Index TNP Troponin I < 0.012 (0.01-0.034) ng/mL Total Protein 7.6 (6.3-8.2) g/dL Albumin 4.3 (3.5-5.0) g/dL Globulin 3.3 (1.7-4.1) g/dL Albumin/Globulin Ratio 1.3 (1.0-2.8) Lipase 13 L (23-300) U/L Influenza A & B (PCR) (Negative) 10/01/18 10/01/18 Range/Units 13:25 15:51 WBC (4.5-11.0) X10^3/uL RBC (4.0-5.2) X10^6/uL Hgb (12.0-16.0) g/dL Hct (36-46) % MCV (80-100) fL MCH (26-34) PG MCHC (30-36) % RDW (11.6-14.8) % Plt Count (150-400) X10^3/uL Neut % (Auto) (50-75) % Lymph % (Auto) (25-40) % [place] % (Auto) (3-14) % Eos % (Auto) (2-4) % Baso % (Auto) (0-2) % Neut # (Auto) (8170-5973) /uL Lymph # (Auto) (0218-4914) /uL [place] # (Auto) (0-900) /uL Eos # (Auto) (0-450) /uL Baso # (Auto) (0-100) /uL PT (10.1-12.7) SECONDS INR (0.9-1.3) APTT (26.4-36.2) SECONDS D-Dimer 396 H (<230) ng/mL Sodium (137-145) mmol/L Potassium (3.4-5.1) mmol/L Chloride (98-107) mmol/L Carbon Dioxide (22-32) mmol/L BUN (7-17) mg/dL Creatinine (0.52-1.04) mg/dL Estimated GFR (>60) mL/min BUN/Creatinine Ratio (6-22) Glucose (80-110) mg/dL Calcium (8.4-10.2) mg/dL Total Bilirubin (0.2-1.3) mg/dL AST (14-36) IU/L ALT (9-52) IU/L Alkaline Phosphatase (38-126) U/L Total Creatine Kinase (30-135) U/L CK-MB (CK-2) CK-MB (CK-2) Rel Index Troponin I (0.01-0.034) ng/mL Total Protein (6.3-8.2) g/dL Albumin (3.5-5.0) g/dL Globulin (1.7-4.1) g/dL Albumin/Globulin Ratio (1.0-2.8) Lipase (23-300) U/L Influenza A & B (PCR) Negative (Negative) Urine Dip Bedside Urine Glucose 100 mg/dl Bedside Urine Ketone +/- 5 Urine Specific [place] 1.020 Bedside Urine Occult Blood - Negative Bedside Urine pH 5.5 Bedside Urine Protein - Negative Bedside Urine Urobilinogen - Negative Bedside Urine Nitrite - Negative Bedside Urine Leukocytes - Negative Esterase Imaging Data CT scan - chest: Radiologist's impression: [address] [address] [address] Scan Report Signed Patient: Rosalia Lee [facility]#: [id number] : 5Acct:[id number] Age/Sex: 63 / FDate of Service: 10/01/18 Loc: ED Accession Number: [id number] Procedure: CT angio chest PE protocol Ordering Provider: Brent Carpenter D.O. PROCEDURE: CT ANGIO CHEST PE PROTOCOL INDICATIONS: sharp pain, shortness of breath, radiation to back, CA patient TECHNIQUE: After the administration of intravenous contrast, 2 mm thick sections acquired from the pulmonary apices to the posterior costophrenic angles. 3-dimensional maximum intensity projection (MIP) coronal and sagittal reformats were then acquired through the thorax. For radiation dose reduction, the following was used: automated exposure control, adjustment of mA and/or kV according to patient size. COMPARISON: [facility], CT, PELVIS WITHOUT CONTRAST, 01/05/2017, 14:02. [facility], CT, CHEST ABDOMEN PELVIS WITH CONTRAST, 05/12/2011, 8:47. [facility], CR, CHEST 1 VIEW, 09/17/2017, 13:48. FINDINGS: Image quality: Excellent. Pulmonary arteries: Pulmonary arteries are normal in size, and demonstrate no intraluminal filling defects to suggest central pulmonary embolism. Evaluation of subsegmental branches is limited by suboptimal contrast opacification. Lungs and pleura: There is mild dependent atelectasis. No focal consolidation. There is a minimal left pleural effusion. Central and peripheral airways are patent. Mediastinum: Heart size is normal, without pericardial effusion. No mediastinal or hilar adenopathy. Thoracic aorta is normal in caliber and enhancement. Esophagus is normal in caliber, without hiatal hernia. Bones and chest wall: No suspicious bony lesions. Ribs and thoracic spine appear intact throughout. Thyroid gland demonstrates no discrete nodules. No axillary or supraclavicular adenopathy. Abdomen: Visualized upper abdominal solid organs appear normal in the early arterial phase of enhancement. IMPRESSION: 1. No evidence of central pulmonary embolism, with evaluation of subsegmental branches limited by suboptimal contrast opacification. 2. Minimal left pleural effusion with mild basilar dependent atelectasis. No focal consolidation. Dictated by: Alex Chaudhary M.D. on 10/01/2018 at 14:28 Approved by: Alex Chaudhary M.D. on 10/01/2018 at 14:44 [facility] Narrative Medical decision making narrative: Multiple etiologies for patient's symptoms considered including: [Myocardial infarction but thought less likely given nonischemic complaint, sharp and stabbing with reproduction, normal troponin and normal EKG. Pulmonary embolism considered given cancer history, pleuritic-type description of pain and shortness of breath but thought less likely given negative CT angiogram. Pneumonia considered but thought less likely given lack of findings on imaging or sputum production. Flu considered but thought less likely given lack of fever, chills, headache or sore throat Patient's symptoms improved or duration of stay with above-stated therapies. Findings and discharge diagnosis discussed with patient/family followed by verbalization of understanding Return precautions discussed with patient/family whom verbalize understanding. Discharge Plan Departure Patient Disposition: Home Clinical Impression: Chest pain, pleuritic Discharge Date/Time: 10/01/18 16:21 Interventions: ED Discharge Assessment Last Done: 10/01/18 16:20 Instructions: DI for Atypical Chest Pain Activity Restrictions/Additional Instructions: *You have been diagnosed with [ atypical, pleuritic-type chest pain ] *What to do: *Take medications as directed *Follow up with your primary care provider in 2-3 days, call for an appointment. Let them know you were seen in the Emergency Department and that we ask that you be seen in follow up *Return to ER if you should have any new, worsening or concerning symptoms, such as [worsening pain, shortness of breath, fever or shaking chills, other bothersome symptoms ] Prescriptions: No Action omeprazole 40 mg Capsule,Delayed Release(Dr/Ec) 40 mg PO BID Qty: 0 RF: 0 allopurinol 300 MG tablet 300 mg PO BEDTIME Qty: 0 RF: 0 potassium gluconate 99 MG tablet 99 mg PO Q DAY Qty: 0 RF: 0 [DIABETIC VITAMIN PK] Q DAY Qty: 0 RF: 0 gabapentin [Neurontin] 300 MG capsule 600 mg PO QDAY17 RF: 0 insulin glargine [Lantus Solostar U-100 Insulin] 100 UNIT/1 ML insulin pen 42 unit SQ HS RF: 0 atorvastatin 20 mg tablet 20 mg PO DAILY RF: 0 tizanidine 4 mg tablet 4 mg PO DAILY RF: 0 estradiol [Climara] 0.05 mg/24 hr patch weekly 1 patch Topical WEEKLY RF: 0 furosemide 20 mg tablet 20 mg PO DAILY RF: 0 Humalog KwikPen Insulin 100 unit/mL insulin pen RF: 0 hydrocodone-acetaminophen 7.5 MG/325 MG tablet PO Q4HP PRN (Reason: pain) RF: 0 Referrals: Radhika Magana MD [Primary Care Provider] -
[2018-10-01] MEDS: KETOROLAC 60 MG/2 ML VIAL 15 MG IV (15:50)
[2018-10-01 16:10] LABS: Influenza A and B by PCR Rapid Negative (Negative)
== END 2018-10-01 16:21 | disposition home or self-care (01) ==
PROVIDERS: Emergency Provider Emergency Medicine; PCP Family Medicine
DX: R07.81 Pleurodynia (principal)
CPT/HCPCS: 36591; 71045; 71275; 80053; 81003; 82550; 83690; 84484; 85025; 85379; 85610; 85730; 87400; 93005; 96374; 99284; 99285; J1885; Q9967

== ENCOUNTER → 2018-10-03 10:43 | Outpatient (CLI) | payer OTHER, SELFPAY | PROVIDERS: PCP Family Medicine; Visit Provider Anesthesiology Pain Medicine | DX: G89.29 Other chronic pain (principal) | CPT/HCPCS: 95885; 95886; 95912 ==

== ENCOUNTER → 2018-10-07 10:47 | Outpatient (CLI) | payer OTHER, SELFPAY | PROVIDERS: PCP Family Medicine; Visit Provider Podiatrist Primary Podiatric Medicine | DX: Z48.817 Encounter for surgical aftercare following surgery on the skin and subcutaneous tissue (principal); L84 Corns and callosities; E11.9 Type 2 diabetes mellitus without complications | CPT/HCPCS: 99213 ==

== ENCOUNTER → 2018-11-06 13:39 | Outpatient (CLI) | payer OTHER, SELFPAY ==
[2018-11-06 14:09] LABS: Add Manual Diff / Slide Review NO; Basophils Absolute Auto 0 /uL (0-100); Basophils Percent Auto 0.5 % (0-2); Eosinophils Absolute Auto 100 /uL (0-450); Eosinophils Percent Auto 1.9 % (2-4); Hematocrit 38.1 % (36-46); Hemoglobin 12.2 g/dL (12.0-16.0); Lymphocytes Absolute Auto 2000 /uL (1100-4500); Lymphocytes Percent Auto 30.1 % (25-40); Mean Corpuscular Hemoglobin 28.8 PG (26-34); Mean Corpuscular Volume 90.2 fL (80-100); Monocytes Absolute Auto 500 /uL (0-900); Monocytes Percent Auto 6.9 % (3-14); Neutrophils Absolute Auto 4100 /uL (1500-7000); Neutrophils Percent Auto 60.6 % (50-75); Platelet Count 263 X10^3/uL (150-400); Red Blood Cell Count 4.22 X10^6/uL (4.0-5.2); Red Cell Distribution Width 17.3 % (11.6-14.8); White Blood Cell Count 6.7 X10^3/uL (4.5-11.0)
[2018-11-06 14:39] LABS: Alanine Aminotransferase 28 IU/L (9-52); Albumin Globulin Ratio 1.4 (1.0-2.8); Alkaline Phosphatase 135 U/L (38-126); Aspartate Aminotransferase 22 IU/L (14-36); Bilirubin Total 0.4 mg/dL (0.2-1.3); Blood Urea Nitrogen 24 mg/dL (7-17); Calcium 9.3 mg/dL (8.4-10.2); Carbon Dioxide 30 mmol/L (22-32); Chloride 99 mmol/L (98-107); Estimated Glomerular Filt Rate > 60.0 mL/min (>60); Globulin 2.8 g/dL (1.7-4.1); Glucose 223 mg/dL (80-110); HEMOLYSIS < 15 (0-50); Sodium 140 mmol/L (137-145); Total Protein 6.8 g/dL (6.3-8.2)
[2018-11-06 15:25] LABS: Vitamin B12 > 1000 pg/mL (239-931)
[2018-11-08 16:32] LABS: Free Kappa Light Chain 31.5 mg/L (3.3-19.4); Free Lambda 17.5 mg/L (5.7-26.3)
[2018-11-09 08:29] LABS: Vitamin B6 53.7 ng/mL (2.1-21.7)
[2018-11-09 13:56] LABS: Albumin 3.6 g/dL (3.8-4.8); Alpha 1 Globulin 0.3 g/dL (0.2-0.3); Alpha 2 Globulin 0.9 g/dL (0.5-0.9); Beta 1 Globulin 0.5 g/dL (0.4-0.6); Gamma Globulin 0.9 g/dL (0.8-1.7); Protein, Total 6.6 g/dL (6.1-8.1)
== END ==
PROVIDERS: PCP Family Medicine; Referring Provider Anesthesiology Pain Medicine; Visit Provider Nurse Practitioner Gerontology
DX: M47.896 Other spondylosis, lumbar region (principal); G62.9 Polyneuropathy, unspecified; D47.2 Monoclonal gammopathy
CPT/HCPCS: 36415; 80053; 82306; 82607; 83735; 83883; 84155; 84165; 84207; 85025

== ENCOUNTER → 2019-01-20 11:47 | Outpatient (ROUT) | payer OTHER, SELFPAY | PROVIDERS: PCP Family Medicine; Visit Provider Family Medicine | DX: L89.309 Pressure ulcer of unspecified buttock, unspecified stage (principal) | CPT/HCPCS: 87070; 87075; 87205 ==

== ENCOUNTER → 2019-01-21 10:55 | Outpatient (CLI) | payer OTHER, SELFPAY ==
[2019-01-21 11:43] LABS: BUN Creatinine Ratio 41.1 (6-22); Blood Urea Nitrogen 37 mg/dL (7-17); Estimated Glomerular Filt Rate > 60.0 mL/min (>60)
--- NOTE | 2019-01-21 12:25 | DI.CT.S_ITS ---
PROCEDURE: CT ABDOMEN PELVIS W CON INDICATIONS: righ lower quad pain TECHNIQUE: After the administration of intravenous contrast, 5 mm thick sections acquired from the diaphragm to the symphysis. 5 mm coronal and sagittal reformats were acquired. For radiation dose reduction, the following was used: automated exposure control, adjustment of mA and/or kV according to patient size. COMPARISON: [facility], CT, PELVIS WITHOUT CONTRAST, 01/05/2017, 14:02. [facility], CT, ABDOMEN/PELVIS WITH CONTRAST, 04/26/2012, 8:45. [facility], CT, ABDOMEN/PELVIS WITHOUT CONTRAS, 06/24/2013, 11:49. [facility], [place], ABDOMEN COMPLETE, 06/23/2014, 8:32. [facility], CT, ABDOMEN/PELVIS WITH CONTRAST, 06/10/2014, 10:44. FINDINGS: Image quality: Excellent. ABDOMEN: Lung bases: Lung bases are clear. Heart size is normal. Solid organs: Mild hepatic fatty infiltration is present. Liver is normal in size and enhancement. Gallbladder is surgically absent. Mild intrahepatic biliary dilation is present. Common bile duct measures up to 14 mm. Pancreas enhances normally. Spleen is normal in size and enhancement. No adrenal nodules. Kidneys demonstrate normal size and enhancement, without hydronephrosis. There is a 1.3 mm stone in the inferior pole the right kidney. Peritoneum and bowel: Appendix is not visualized. There is no fat stranding in the right lower quadrant. Bowel loops demonstrate normal wall thickness and caliber. No free fluid or air. Nodes and vessels: No retroperitoneal or mesenteric adenopathy by size criteria. Aorta and inferior vena cava are normal in size. Miscellaneous: No ventral hernias. Surgical changes in the anterior abdominal wall are likely related to prior ventral hernia repair. PELVIS: Genitourinary: Bladder wall thickness is normal. Uterus and ovaries are not visualized. Miscellaneous: No inguinal hernias or adenopathy. Bones: No suspicious bony lesions. No vertebral body compression fractures. IMPRESSION: 1. No acute intra-abdominal process. 2. Appendix is not visualized. There is no inflammatory stranding in the right lower quadrant. 3. A non-obstructive right renal stone. 4. Intrahepatic and intrahepatic biliary dilation may be related to cholecystectomy. Please correlate with serum bilirubin. Dictated by: Eliza Dave M.D. on 01/21/2019 at 13:09 Approved by: Eliza Dave M.D. on 01/21/2019 at 13:20
== END ==
PROVIDERS: PCP Family Medicine; Visit Provider Surgery
DX: R10.31 Right lower quadrant pain (principal); N20.0 Calculus of kidney; K83.8 Other specified diseases of biliary tract; M79.9 Soft tissue disorder, unspecified; Z90.49 Acquired absence of other specified parts of digestive tract
CPT/HCPCS: 36415; 74177; 82565; 84520; Q9967

== ENCOUNTER → 2019-01-30 14:05 | Outpatient (CLI) | payer OTHER, SELFPAY | PROVIDERS: PCP Family Medicine; Visit Provider Family Medicine | DX: E11.622 Type 2 diabetes mellitus with other skin ulcer (principal) | CPT/HCPCS: 11042; 87070; 87075; 87205; 99213; 99214 ==

== ENCOUNTER → 2019-02-06 11:17 | Outpatient (CLI) | payer OTHER, SELFPAY | PROVIDERS: PCP Family Medicine; Visit Provider Family Medicine | DX: S31.819A Unspecified open wound of right buttock, initial encounter (principal); E11.622 Type 2 diabetes mellitus with other skin ulcer | CPT/HCPCS: 11042 ==

== ENCOUNTER → 2019-03-04 14:38 | Outpatient (CLI) | payer OTHER, SELFPAY | PROVIDERS: PCP Family Medicine; Visit Provider Family Medicine | DX: Z48.817 Encounter for surgical aftercare following surgery on the skin and subcutaneous tissue (principal); E11.9 Type 2 diabetes mellitus without complications | CPT/HCPCS: 99212 ==

== ENCOUNTER 2019-07-08 15:54 | Emergency (ER) | payer OTHER, SELFPAY ==
[2019-07-08 15:54] VITALS: BP 215/112; PULSE 101; RESP 16; TEMP 36.6; O2SAT 97; BMI 34.5
--- NOTE | 2019-07-08 16:34 | ED.ABDPAIN ---
HPI - Abdominal Pain General Chief Complaint: Abdominal Pain Stated Complaint: vomiting bile Time Seen by Provider: 07/08/19 16:02 Source: patient Mode of arrival: Ambulatory Limitations: no limitations History of Present Illness HPI narrative: Patient is a 64-year-old female with diabetes presenting with vomiting worse over the last 3 days. She actually states that she vomits every morning since April but it has progressively gotten worse she is unable to keep anything down. Gross has been quite variable as low was 42 as high as in the 300's. She does have some mild lower abdominal, she is a cholecystectomy, appendectomy and hysterectomy. She has had some diarrhea as well. She says that she has woken up sweating at night frequently and found that her glucose is low in the 40s. She stop taking her Humalog she is only taking Lantus. Related Data Home Medications Medication Instructions Recorded Confirmed allopurinol 300 mg PO BEDTIME #0 04/14/13 07/08/19 omeprazole 40 mg PO BID #0 04/14/13 07/08/19 Lantus Solostar U-100 Insulin 49 unit SQ BEDTIME 04/23/18 07/08/19 atorvastatin 20 mg PO DAILY 10/01/18 07/08/19 estradiol [Climara] 1 patch TOPICAL WEEKLY 10/01/18 07/08/19 furosemide 20 mg PO DAILY 10/01/18 07/08/19 insulin lispro [Humalog KwikPen 0 unit SUBCUT DIRECTED 10/01/18 07/08/19 Insulin] tizanidine 4 mg PO BEDTIME 10/01/18 07/08/19 gabapentin enacarbil [Horizant] 600 mg PO QPM 07/08/19 07/08/19 Previous Rx's Medication Instructions Recorded ondansetron 4 mg PO Q8H PRN #10 tab 07/08/19 Allergies Allergy/AdvReac Type Severity Reaction Status Date / Time tetanus and diphtheria Allergy Severe HOSPITALIZED Verified 07/08/19 16:10 toxoids CHILD [tetanus & diphtheria toxoids] metoclopramide [From REGLAN] Allergy Intermediate Tremors Verified 07/08/19 16:10 Penicillins Allergy Mild RASH Verified 07/08/19 16:10 ciprofloxacin AdvReac Severe ACHILLES Verified 07/08/19 16:10 TENDON RUPTURE levofloxacin AdvReac Severe ACHILLES Verified 07/08/19 16:10 TENDON RUPTURE Review of Systems Review of Systems Narrative: GENERAL: Denies chills, fatigue, malaise, fever, sweats, travel HEENT: Denies sinus pain, ear pain, sore throat, difficulty swallowing, neck pain RESPIRATORY: Denies dyspnea, cough, wheezing, hemoptysis, sputum. CARDIOVASCULAR: Denies chest pain, palpitations, orthopnea, edema GASTROINTESTINAL: See HPI : Denies dysuria, frequency, incontinence, hematuria, urinary retention, flank pain. MUSCULOSKELETAL: Denies weakness, joint pain, or bony pain SKIN: No rash, no erythema, no pruritus NEUROLOGIC: Denies weakness, dizziness, headache, numbness, change in speech, confusion PSYCHIATRIC: No concerning psychosocial issues. 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 HEENT: Head atraumatic,EOMI, pupils reactive, face symmetric, moist mucous membranes CARDIOVASCULAR: Regular rate and rhythm without murmurs, rubs or gallops. RESPIRATORY: Breath sounds equal bilaterally, no wheezes rales or rhonchi. ABDOMEN: Soft, mild tender lower abdominal tenderness slightly more on right EXTREMITIES: Normal range of motion, no clubbing or edema. Neurovascularly intact NEUROLOGICAL: Alert and oriented x4.Normal gait and speech. Cranial nerves II through XII grossly intact. SKIN: Warm, dry, no laceration, no petechiae, no rashes or lesions. Course Orders Ordered: ED Orders 07/08/19 16:25 Complete Blood Count AUTO DIFF Stat Comprehensive Metabolic Panel Stat Lipase Stat 07/08/19 16:46 CT abdomen pelvis w con Stat 07/08/19 17:35 Urine Culture Stat Urine Microscopic Stat Sodium Chloride (Normal Saline 0.9%) 1,000 mls @ 1,000 mls/hr IV CONT LI Last Admin: 07/08/19 16:44 Dose: 1,000 mls/hr Documented by: BTONER Discontinued Medications Ondansetron HCl (Zofran) 4 mg IV NOW ONE Stop: 07/08/19 16:36 Last Admin: 07/08/19 16:44 Dose: 4 mg Documented by: BTONER Pantoprazole Sodium (Protonix) 40 mg IV NOW ONE Stop: 07/08/19 16:36 Last Admin: 07/08/19 16:44 Dose: 40 mg Documented by: BTONER Vital Signs Vital signs: Vital Signs - 8 hr 07/08/19 15:54 07/08/19 18:51 Temperature 97.9 F Pulse Rate 101 H 88 Respiratory Rate 16 16 Blood Pressure 215/112 H Blood Pressure [Left Arm] 187/93 H Pulse Oximetry 97 95 MDM - Abdominal Pain Lab Data Attestation: I reviewed the patient's lab results. Result diagrams: 07/08/19 16:25 07/08/19 16:25 Labs: Lab Results 07/08/19 07/08/19 07/08/19 Range/Units 16:25 16:25 17:35 WBC 7.7 (4.5-11.0) X10^3/uL RBC 4.67 (4.0-5.2) X10^6/uL Hgb 14.2 (12.0-16.0) g/dL Hct 42.8 (36-46) % MCV 91.6 (80-100) fL MCH 30.5 (26-34) PG MCHC 33.3 (30-36) % RDW 17.0 H (11.6-14.8) % Plt Count 259 (150-400) X10^3/uL Neut % (Auto) 73.5 (50-75) % Lymph % (Auto) 19.5 L (25-40) % [place] % (Auto) 5.8 (3-14) % Eos % (Auto) 0.5 L (2-4) % Baso % (Auto) 0.7 (0-2) % Neut # (Auto) 5700 (5888-1719) /uL Lymph # (Auto) 1500 (6283-2067) /uL [place] # (Auto) 400 (0-900) /uL Eos # (Auto) 0 (0-450) /uL Baso # (Auto) 100 (0-100) /uL Sodium 139 (137-145) mmol/L Potassium 3.3 L (3.4-5.1) mmol/L Chloride 99 (98-107) mmol/L Carbon Dioxide 27 (22-32) mmol/L BUN 18 H (7-17) mg/dL Creatinine 0.70 (0.52-1.04) mg/dL Estimated GFR > 60.0 (>60) mL/min BUN/Creatinine Ratio 25.7 H (6-22) Glucose 247 H (80-110) mg/dL Calcium 9.7 (8.4-10.2) mg/dL Total Bilirubin 1.1 (0.2-1.3) mg/dL AST 24 (14-36) IU/L ALT 14 (<35) IU/L Alkaline Phosphatase 161 H (38-126) U/L Total Protein 8.1 (6.3-8.2) g/dL Albumin 4.7 (3.5-5.0) g/dL Globulin 3.4 (1.7-4.1) g/dL Albumin/Globulin Ratio 1.4 (1.0-2.8) Lipase 15 L (23-300) U/L Urine RBC 0-1/hpf (0-5/HPF) Urine WBC 1-5/hpf (0-5/HPF) Ur Squamous Epith Cells 5-10 /hpf H (0-5/HPF) Amorphous Sediment 1+ Urine Bacteria Few (2-10) H (None) Urine Mucus 1+ H (Negative) Ur Culture Indicated? Specimen cultured Point of care testing: Urine Dip Bedside Urine Glucose 250 mg/dl Bedside Urine Bilirubin - Negative Bedside Urine Ketone + 15 Urine Specific [place] 1.015 Bedside Urine Occult Blood +/- Bedside Urine pH 6.0 Bedside Urine Protein +/- 15 Bedside Urine Urobilinogen - Negative Bedside Urine Nitrite - Negative Bedside Urine Leukocytes +/- [address] scan - abdomen: Radiologist's impression: PROCEDURE: CT ABDOMEN PELVIS W CON INDICATIONS: ab pain vomiting TECHNIQUE: After the administration of intravenous contrast, 5 mm thick sections acquired from the diaphragm to the symphysis. 5 mm coronal and sagittal reformats were acquired. For radiation dose reduction, the following was used: automated exposure control, adjustment of mA and/or kV according to patient size. COMPARISON: [facility], CT, CT ABDOMEN PELVIS W CON, 01/21/2019, 11:54. [facility], CT, ABDOMEN/PELVIS WITH CONTRAST, 06/10/2014, 10:44. FINDINGS: Image quality: Excellent. ABDOMEN: Lung bases: Lung bases are clear. Heart size is normal. Solid organs: Liver is normal in size and enhancement. Gallbladder has been previously resected. Biliary system is non dilated. Pancreas enhances normally. Spleen is normal in size and enhancement. No adrenal nodules. Kidneys demonstrate normal size and enhancement, without hydronephrosis. There is, however, a 1.5 cm nonobstructive calculus in a posterior calyx at the right mid kidney. No ureteral calculus is found. Several distal pelvic phleboliths are incidentally noted near the course of the ureters but not within. Peritoneum and bowel: Bowel loops demonstrate normal wall thickness and caliber. No free fluid or air. Nodes and vessels: No retroperitoneal or mesenteric adenopathy by size criteria. Aorta and inferior vena cava are normal in size. Miscellaneous: No ventral hernias. PELVIS: Genitourinary: Bladder wall thickness is normal. Prior hysterectomy. Miscellaneous: No inguinal hernias or adenopathy. Bones: No suspicious bony lesions. No vertebral body compression fractures. IMPRESSION: A definite source of new onset abdominal pain is not seen. 1.5 cm nonobstructed right mid renal calculus is incidentally noted. This conceivably could cause abdominal pain without obstruction, however. Prior cholecystectomy. Prior hysterectomy. No underlying infection or neoplasm suspected. Dictated by: Manny Waller M.D. on 07/08/2019 at 17:41 MDM Narrative Medical decision making narrative: The patient overall is feeling better. No nausea or vomiting in the ED. CT abdomen negative blood work overall reassuring glucose mildly elevated in the 200s. I recommend that she document her glucose numbers her Lantus dose may need to be adjusted. Vomiting may be due to gastroparesis or viral syndrome. However vomiting daily since April may require further evaluation which I did discuss with her. She understands that she needs to follow up with PCP. Discharge Plan Departure Patient Disposition: Home Clinical Impression: Gastroparesis Instructions: DI for Viral Gastroenteritis -- Adult, Gastroparesis Activity Restrictions/Additional Instructions: *You have been diagnosed with either virus gastroenteritis or gastroparesis *What to do: Increase fluid intake as tolerated small sips frequently Your insulin may need to be adjusted please keep track of your glucose and speak with your provider about this *Continue to take medications as directed Zofran 4 mg every 8 hours if needed for nausea or vomiting *Follow up with your primary care provider in 2-3 days *Return to ER if you should have persistent vomiting increasing abdominal pain, persistently low glucose or significantly elevated glucose or any new, worsening or concerning symptoms Prescriptions: New ondansetron 4 mg tablet,disintegrating 4 mg PO Q8H PRN (Reason: nausea and vomiting) Qty: 10 RF: 0 No Action omeprazole 40 mg Capsule,Delayed Release(Dr/Ec) 40 mg PO BID Qty: 0 RF: 0 allopurinol 300 MG tablet 300 mg PO BEDTIME Qty: 0 RF: 0 Lantus Solostar U-100 Insulin 100 UNIT/1 ML insulin pen 49 unit SQ BEDTIME RF: 0 atorvastatin 20 mg tablet 20 mg PO DAILY RF: 0 tizanidine 4 mg tablet 4 mg PO BEDTIME RF: 0 estradiol [Climara] 0.05 mg/24 hr patch weekly 1 patch Topical WEEKLY RF: 0 furosemide 20 mg tablet 20 mg PO DAILY RF: 0 insulin lispro [Humalog KwikPen Insulin] 100 unit/mL insulin pen 0 unit subcut DIRECTED RF: 0 Horizant 600 mg Tablet Extended Release 600 mg PO QPM RF: 0 Referrals: Radhika Magana MD [Primary Care Provider] -
[2019-07-08] MEDS: SODIUM CHLORIDE 0.9% 1,000 ML 1000 ML IV (16:44)
[2019-07-08] MEDS: PANTOPRAZOLE 40 MG VIAL IV (16:44)
[2019-07-08] MEDS: ONDANSETRON 4 MG/2 ML INJ IV (16:44)
--- NOTE | 2019-07-08 16:46 | DI.CT.S_ITS ---
PROCEDURE: CT ABDOMEN PELVIS W CON INDICATIONS: ab pain vomiting TECHNIQUE: After the administration of intravenous contrast, 5 mm thick sections acquired from the diaphragm to the symphysis. 5 mm coronal and sagittal reformats were acquired. For radiation dose reduction, the following was used: automated exposure control, adjustment of mA and/or kV according to patient size. COMPARISON: [facility], CT, CT ABDOMEN PELVIS W CON, 01/21/2019, 11:54. [facility], CT, ABDOMEN/PELVIS WITH CONTRAST, 06/10/2014, 10:44. FINDINGS: Image quality: Excellent. ABDOMEN: Lung bases: Lung bases are clear. Heart size is normal. Solid organs: Liver is normal in size and enhancement. Gallbladder has been previously resected. Biliary system is non dilated. Pancreas enhances normally. Spleen is normal in size and enhancement. No adrenal nodules. Kidneys demonstrate normal size and enhancement, without hydronephrosis. There is, however, a 1.5 cm nonobstructive calculus in a posterior calyx at the right mid kidney. No ureteral calculus is found. Several distal pelvic phleboliths are incidentally noted near the course of the ureters but not within. Peritoneum and bowel: Bowel loops demonstrate normal wall thickness and caliber. No free fluid or air. Nodes and vessels: No retroperitoneal or mesenteric adenopathy by size criteria. Aorta and inferior vena cava are normal in size. Miscellaneous: No ventral hernias. PELVIS: Genitourinary: Bladder wall thickness is normal. Prior hysterectomy. Miscellaneous: No inguinal hernias or adenopathy. Bones: No suspicious bony lesions. No vertebral body compression fractures. IMPRESSION: A definite source of new onset abdominal pain is not seen. 1.5 cm nonobstructed right mid renal calculus is incidentally noted. This conceivably could cause abdominal pain without obstruction, however. Prior cholecystectomy. Prior hysterectomy. No underlying infection or neoplasm suspected. Dictated by: Manny Waller M.D. on 07/08/2019 at 17:41 Approved by: Manny Waller M.D. on 07/08/2019 at 17:43
[2019-07-08 16:48] LABS: Add Manual Diff / Slide Review NO; Basophils Absolute Auto 100 /uL (0-100); Basophils Percent Auto 0.7 % (0-2); Eosinophils Absolute Auto 0 /uL (0-450); Eosinophils Percent Auto 0.5 % (2-4); Hematocrit 42.8 % (36-46); Hemoglobin 14.2 g/dL (12.0-16.0); Lymphocytes Absolute Auto 1500 /uL (1100-4500); Lymphocytes Percent Auto 19.5 % (25-40); Mean Corpuscular HGB Conc 33.3 % (30-36); Mean Corpuscular Hemoglobin 30.5 PG (26-34); Mean Corpuscular Volume 91.6 fL (80-100); Monocytes Absolute Auto 400 /uL (0-900); Monocytes Percent Auto 5.8 % (3-14); Neutrophils Absolute Auto 5700 /uL (1500-7000); Neutrophils Percent Auto 73.5 % (50-75); Platelet Count 259 X10^3/uL (150-400); Red Blood Cell Count 4.67 X10^6/uL (4.0-5.2); White Blood Cell Count 7.7 X10^3/uL (4.5-11.0)
[2019-07-08 16:55] LABS: Alanine Aminotransferase 14 IU/L (<35); Albumin 4.7 g/dL (3.5-5.0); Albumin Globulin Ratio 1.4 (1.0-2.8); Alkaline Phosphatase 161 U/L (38-126); Aspartate Aminotransferase 24 IU/L (14-36); BUN Creatinine Ratio 25.7 (6-22); Bilirubin Total 1.1 mg/dL (0.2-1.3); Blood Urea Nitrogen 18 mg/dL (7-17); Calcium 9.7 mg/dL (8.4-10.2); Carbon Dioxide 27 mmol/L (22-32); Chloride 99 mmol/L (98-107); Estimated Glomerular Filt Rate > 60.0 mL/min (>60); Globulin 3.4 g/dL (1.7-4.1); Glucose 247 mg/dL (80-110); HEMOLYSIS < 15 (0-50); Lipase 15 U/L (23-300); Potassium 3.3 mmol/L (3.4-5.1); Sodium 139 mmol/L (137-145); Total Protein 8.1 g/dL (6.3-8.2)
--- NOTE | 2019-07-08 17:34 | PC.NURSE ---
pt stated when back from CT she felt heaviness, nauseated and needed to use the restroom. pt lied in bed for 5 min, then got up to ambulating to the restroom, steady gait. when back to room pt states feeling better.
[2019-07-08 17:54] LABS: Amorphous Sediment Urine 1+; Bacteria Urine Few (2-10); Culture Indicated Urine Specimen Cultured; Mucus Urine 1+ (Negative); RBC Urine 0-1/HPF (0-5/HPF); Squamous Epithelial Cell Urine 5-10 /HPF (0-5/HPF); WBC Urine 1-5/HPF (0-5/HPF)
[2019-07-08 18:51] VITALS: BP 187/93; PULSE 88; RESP 16; O2SAT 95
== END 2019-07-08 19:21 | disposition home or self-care (01) ==
PROVIDERS: Emergency Provider Emergency Medicine; Family Provider Family Medicine; PCP Family Medicine
DX: E11.43 Type 2 diabetes mellitus with diabetic autonomic (poly)neuropathy (principal); K31.84 Gastroparesis; Z79.4 Long term (current) use of insulin
CPT/HCPCS: 74177; 80053; 81003; 81015; 83690; 85025; 87086; 96361; 96374; 96375; 99283; 99284; C9113; J2405; Q9967

== ENCOUNTER → 2019-12-15 10:12 | Outpatient (CLI) | payer OTHER, SELFPAY ==
[2019-12-15 10:38] LABS: Add Manual Diff / Slide Review NO; Basophils Absolute Auto 100 /uL (0-100); Eosinophils Absolute Auto 200 /uL (0-450); Eosinophils Percent Auto 2.2 % (2-4); Hematocrit 39.7 % (36-46); Hemoglobin 12.5 g/dL (12.0-16.0); Lymphocytes Absolute Auto 3100 /uL (1100-4500); Lymphocytes Percent Auto 33.6 % (25-40); Mean Corpuscular HGB Conc 31.5 % (30-36); Mean Corpuscular Hemoglobin 29.9 PG (26-34); Mean Corpuscular Volume 94.9 fL (80-100); Monocytes Absolute Auto 800 /uL (0-900); Monocytes Percent Auto 8.5 % (3-14); Neutrophils Absolute Auto 5000 /uL (1500-7000); Neutrophils Percent Auto 54.7 % (50-75); Platelet Count 301 X10^3/uL (150-400); Red Blood Cell Count 4.18 X10^6/uL (4.0-5.2); Red Cell Distribution Width 16.2 % (11.6-14.8); White Blood Cell Count 9.2 X10^3/uL (4.5-11.0)
[2019-12-15 10:51] LABS: Alanine Aminotransferase 24 IU/L (<35); Albumin 4.2 g/dL (3.5-5.0); Albumin Globulin Ratio 1.3 (1.0-2.8); Alkaline Phosphatase 178 U/L (38-126); Aspartate Aminotransferase 38 IU/L (14-36); Bilirubin Total 0.6 mg/dL (0.2-1.3); Blood Urea Nitrogen 22 mg/dL (7-17); Calcium 9.6 mg/dL (8.4-10.2); Carbon Dioxide 30 mmol/L (22-32); Chloride 103 mmol/L (98-107); Estimated Glomerular Filt Rate 52.8 mL/min (>60); Globulin 3.2 g/dL (1.7-4.1); Glucose 89 mg/dL (80-110); HEMOLYSIS < 15 (0-50); Sodium 144 mmol/L (137-145); Total Protein 7.4 g/dL (6.3-8.2)
[2020-02-29 13:53] LABS: Free Kappa Lt Chains, Serum 32.9; Free Lambda Lt Chains,Serum 18.5
== END ==
PROVIDERS: Family Provider Family Medicine; PCP Family Medicine; Referring Provider Internal Medicine Hematology & Oncology; Visit Provider Internal Medicine Hematology & Oncology
DX: D47.2 Monoclonal gammopathy (principal)
CPT/HCPCS: 36415; 80053; 83883; 85025

== ENCOUNTER → 2019-12-25 15:00 | Oncology outpatient (ONC) | payer OTHER, SELFPAY ==
[2018-04-23 14:51] VITALS: BP 125/85; PULSE 72; RESP 18; TEMP 37; O2SAT 98
--- NOTE | 2018-04-23 15:31 | ONC.APRN.PN ---
Assessment and Plan (1) Monoclonal gammopathy of undetermined significance Current visit: Yes Status: Acute 04/23/18 15:33 The patient is a 63 year old Female who is being seen in the clinic 04/23/2018. 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 No clinical signs or symptoms of disease progression on exam today. Additionally, CBC, CMP also free light chains remain unremarkable. Patient has noticed overall substantial improvement in her health since drastically reducing her carbohydrate intake also trying to exercise more. Return to clinic in 6 months time for provider visit, CBC, CMP, free light chain,SPEP, paraprotein - Time Spent with Patient 30 mins PN -Subjective Interval history: The patient is a 63 year old Female who is being seen in the clinic 04/23/2018. 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 Patient presents today for her 6 month clinical evaluation. During interval she is done well. She continues to show slow but improvement on her right foot. She also essentially cut out all carbohydrates from her diet and reports improvement in her hemoglobin A1c levels. Remainder of her review of systems today was negative for any unusual infections or focal bone pains. No recent illnesses. Seeing physical therapy for some vertigo and sacral iliac joint pain. Getting better. Past Medical History The patient's past medical history is significant for: 1) light chain - MGUS Diagnosis: 02/28/2013. Free light chain assay: [place] light chain at 31.4. Lambda light chain at 18.9. [place]/Lambda ratio of 1.66. Serum protein electrophoresis without evidence of a detectable paraprotein. 2. Hypertension. 3. Diabetes. 4. Hypercholesterolemia. 5. Anxiety. 6. Gout. Results - Imaging Additional studies: Procedures Excisional debridement of wound, infection, or burn (12/26/13) Injection or infusion of other therapeutic or prophylactic substance (05/07/14) Nonexcisional debridement of wound, infection or burn (12/26/13) Other endoscopy of small intestine (10/20/11) Venous catheterization, not elsewhere classified (12/26/13) Home Medications and Allergies Home Medications Medication Instructions Recorded Confirmed Type OMEPRAZOLE 40 mg PO BID #0 04/14/13 02/15/18 History allopurinol 300 mg PO HS #0 04/14/13 02/15/18 History hydrocodone-acetaminophen 0 PO Q4HP PRN #160 tab 11/15/16 02/15/18 Rx [DIABETIC VITAMIN PK] Q DAY #0 05/01/17 02/15/18 History potassium gluconate 99 mg PO Q DAY #0 05/01/17 02/15/18 History atorvastatin [Lipitor] 40 mg PO QDAY #0 10/30/17 02/15/18 History gabapentin [Neurontin] 600 mg PO QDAY17 04/23/18 04/23/18 History insulin glargine [Lantus Solostar 42 unit SQ HS 04/23/18 04/23/18 History U-100 Insulin] Allergies Allergy/AdvReac Type Severity Reaction Status Date / Time tetanus and diphtheria Allergy Severe HOSPITALIZED Unverified 02/15/18 14:49 toxoids CHILD [tetanus & diphtheria toxoids] metoclopramide [From REGLAN] Allergy Intermediate Tremors Unverified 02/15/18 14:49 Penicillins Allergy Mild RASH Unverified 02/15/18 14:49 ciprofloxacin AdvReac Severe ACHILLES Unverified 02/15/18 14:49 TENDON RUPTURE levofloxacin AdvReac Severe ACHILLES Unverified 02/15/18 14:49 TENDON RUPTURE Exam Vital signs: Last Vital Signs Temp 98.6 F 04/23/18 14:51 Pulse 72 04/23/18 14:51 Resp 18 04/23/18 14:51 BP 125/85 04/23/18 14:51 Pulse Ox 98 04/23/18 14:51 - Constitutional positive no acute distress - Routine HEENT Exam Eye: Present: conjunctivae pink. Absent: conjunctival icterus, scleral injection ENT: Present: mucous membranes moist, oropharynx clear - Routine Neck Exam Present: supple. Absent: lymphadenopathy - Routine Respiratory Exam Present: Clear to auscultation bilaterally. Absent: rales, rhonchi, wheezes - Routine Cardiovascular Exam Present: RRR, S1, S2, murmur. Absent: gallop, rubs, JVD - Routine Abdominal Exam Present: soft, normoactive bowel sounds. Absent: tenderness, distended, organomegaly, mass Comments: large pannus - Routine Extremities Exam Absent: edema, calf tenderness - Routine Skin Exam Present: intact, normal turgor. Absent: petechiae, rash - Routine Neurological Exam Present: alert, oriented X3 - Routine Psychiatric Exam Present: normal affect
--- NOTE | 2018-04-23 15:36 | P.PNONC_ITS ---
Assessment and Plan (1) Monoclonal gammopathy of undetermined significance Current visit: Yes Status: Acute 04/23/18 15:33 The patient is a 63 year old Female who is being seen in the clinic 04/23/2018. 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 No clinical signs or symptoms of disease progression on exam today. Additionally, CBC, CMP also free light chains remain unremarkable. Patient has noticed overall substantial improvement in her health since drastically reducing her carbohydrate intake also trying to exercise more. Return to clinic in 6 months time for provider visit, CBC, CMP, free light chain ,SPEP, paraprotein - Time Spent with Patient 30 mins PN -Subjective Interval history: The patient is a 63 year old Female who is being seen in the clinic 04/23/2018. 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 Patient presents today for her 6 month clinical evaluation. During interval she is done well. She continues to show slow but improvement on her right foot. She also essentially cut out all carbohydrates from her diet and reports improvement in her hemoglobin A1c levels. Remainder of her review of systems today was negative for any unusual infections or focal bone pains. No recent illnesses. Seeing physical therapy for some vertigo and sacral iliac joint pain. Getting better. Past Medical History The patient's past medical history is significant for: 1) light chain - MGUS Diagnosis: 02/28/2013. Free light chain assay: [place] light chain at 31.4. Lambda light chain at 18.9. [place]/Lambda ratio of 1.66. Serum protein electrophoresis without evidence of a detectable paraprotein. 2. Hypertension. 3. Diabetes. 4. Hypercholesterolemia. 5. Anxiety. 6. Gout. Results - Imaging Additional studies: Procedures Excisional debridement of wound, infection, or burn (12/26/13) Injection or infusion of other therapeutic or prophylactic substance (05/07/14) Nonexcisional debridement of wound, infection or burn (12/26/13) Other endoscopy of small intestine (10/20/11) Venous catheterization, not elsewhere classified (12/26/13) Home Medications and Allergies Home Medications Medication Instructions Recorded Confirmed Type OMEPRAZOLE 40 mg PO BID #0 04/14/13 02/15/18 History allopurinol 300 mg PO HS #0 04/14/13 02/15/18 History hydrocodone-acetaminophen 0 PO Q4HP PRN #160 tab 11/15/16 02/15/18 Rx [DIABETIC VITAMIN PK] Q DAY #0 05/01/17 02/15/18 History potassium gluconate 99 mg PO Q DAY #0 05/01/17 02/15/18 History atorvastatin [Lipitor] 40 mg PO QDAY #0 10/30/17 02/15/18 History gabapentin [Neurontin] 600 mg PO QDAY17 04/23/18 04/23/18 History insulin glargine [Lantus Solostar 42 unit SQ HS 04/23/18 04/23/18 History U-100 Insulin] Allergies Allergy/AdvReac Type Severity Reaction Status Date / Time tetanus and diphtheria Allergy Severe HOSPITALIZED Unverified 02/15/18 14:49 toxoids CHILD [tetanus & diphtheria toxoids] metoclopramide [From REGLAN] Allergy Intermediate Tremors Unverified 02/15/18 14 :49 Penicillins Allergy Mild RASH Unverified 02/15/18 14:49 ciprofloxacin AdvReac Severe ACHILLES Unverified 02/15/18 14:49 TENDON RUPTURE levofloxacin AdvReac Severe ACHILLES Unverified 02/15/18 14:49 TENDON RUPTURE Exam Vital signs: Last Vital Signs Temp 98.6 F 04/23/18 14:51 Pulse 72 04/23/18 14:51 Resp 18 04/23/18 14:51 BP 125/85 04/23/18 14:51 Pulse Ox 98 04/23/18 14:51 - Constitutional positive no acute distress - Routine HEENT Exam Eye: Present: conjunctivae pink. Absent: conjunctival icterus, scleral injection ENT: Present: mucous membranes moist, oropharynx clear - Routine Neck Exam Present: supple. Absent: lymphadenopathy - Routine Respiratory Exam Present: Clear to auscultation bilaterally. Absent: rales, rhonchi, wheezes - Routine Cardiovascular Exam Present: RRR, S1, S2, murmur. Absent: gallop, rubs, JVD - Routine Abdominal Exam Present: soft, normoactive bowel sounds. Absent: tenderness, distended, organomegaly, mass Comments: large pannus - Routine Extremities Exam Absent: edema, calf tenderness - Routine Skin Exam Present: intact, normal turgor. Absent: petechiae, rash - Routine Neurological Exam Present: alert, oriented X3 - Routine Psychiatric Exam Present: normal affect
[2018-11-19 14:10] VITALS: BP 145/68; PULSE 75; RESP 18; TEMP 37; O2SAT 99
--- NOTE | 2018-11-19 14:16 | P.PNONC_ITS ---
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 Since her last visit here, she generally well. She denies any new aches or pains but has been bothered by a chronic neuropathy that is been stable. She denies any fevers chills or sweats. Appetite and energy level have been good. No shortness of breath or cough. No GI complaints. She has not the adenopathy. She denies any other changes in her health. Past Medical History The patient's past medical history is significant for: 1) light chain - MGUS Diagnosis: 02/28/2013. Free light chain assay: [place] light chain at 31.4. Lambda light chain at 18.9. [place]/Lambda ratio of 1.66. Serum protein electrophoresis witho ut evidence of a detectable paraprotein. 2. Hypertension. 3. Diabetes. 4. Hypercholesterolemia. 5. Anxiety. 6. Gout She also has a history of a B12 deficiency: A endometrial cancer, history of osteomyelitis. She is status post surgical resection of a bone in her foot. She has peripheral neuropathy likely related to her diabetes.. - Patient Self-Reported Symptoms SR Musculoskeletal issues: Muscle weakness, Muscle pain or cramps, Difficulty walking, Bone pain SR Neuro issues: Numbness or tingling, Difficulty balancing Home Medications and Allergies Home Medications Medication Instructions Recorded Confirmed Type allopurinol 300 mg PO BEDTIME #0 04/14/13 10/01/18 History omeprazole 40 mg PO BID #0 04/14/13 10/01/18 History [DIABETIC VITAMIN PK] Q DAY #0 05/01/17 02/15/18 History potassium gluconate 99 mg PO Q DAY #0 05/01/17 02/15/18 History Lantus Solostar U-100 Insulin 42 unit SQ HS 04/23/18 04/23/18 History gabapentin [Neurontin] 600 mg PO QDAY17 04/23/18 10/01/18 History atorvastatin 20 mg PO DAILY 10/01/18 10/01/18 History estradiol [Climara] 1 patch TOPICAL WEEKLY 10/01/18 10/01/18 History furosemide 20 mg PO DAILY 10/01/18 10/01/18 History hydrocodone-acetaminophen 0 PO Q4HP PRN 10/01/18 History insulin lispro [Humalog KwikPen 10/01/18 History Insulin] tizanidine 4 mg PO DAILY 10/01/18 10/01/18 History Allergies Allergy/AdvReac Type Severity Reaction Status Date / Time tetanus and diphtheria Allergy Severe HOSPITALIZED Verified 10/01/18 13:15 toxoids CHILD [tetanus & diphtheria toxoids] metoclopramide [From REGLAN] Allergy Intermediate Tremors Verified 10/01/18 13:15 Penicillins Allergy Mild RASH Verified 10/01/18 13:15 ciprofloxacin AdvReac Severe ACHILLES Verified 10/01/18 13:15 TENDON RUPTURE levofloxacin AdvReac Severe ACHILLES Verified 10/01/18 13:15 TENDON RUPTURE Exam Vital signs: Vital Signs Temp Pulse Resp BP Pulse Ox 11/19/18 14:10 98.6 F 75 18 145/68 H 99 Intake and Output 11/18/18 11/19/18 11/19/18 23:59 07:59 15:59 Other: Weight 92.7 kg Patient Weight 11/19/18 23:59 Weight 92.7 kg - Constitutional positive no acute distress, positive obese - Routine HEENT Exam Head: Present: normocephalic, atraumatic Eye: Present: EOMI, PERRL. Absent: conjunctival icterus, scleral injection ENT: Present: mucous membranes moist, oropharynx clear - Routine Neck Exam Present: supple. Absent: lymphadenopathy, thyromegaly - Routine Respiratory Exam Present: Clear to auscultation bilaterally. Absent: rales, wheezes - Routine Cardiovascular Exam Present: RRR, S1, S2. Absent: murmur - Routine Abdominal Exam Present: soft, normoactive bowel sounds. Absent: tenderness, organomegaly, mass - Routine Extremities Exam Absent: cyanosis, clubbing, edema - Routine Back/Spine Exam Back/Spine: Absent: paraspinal tenderness, vertebral tenderness - Routine Skin Exam Present: intact. Absent: petechiae, rash - Routine Neurological Exam Present: alert, oriented X3 - Routine Psychiatric Exam Present: normal affect, normal thought process Results - Imaging Additional studies: Procedures Excisional debridement of wound, infection, or burn (12/26/13) Injection or infusion of other therapeutic or prophylactic substance (05/07/14) Nonexcisional debridement of wound, infection or burn (12/26/13) Other endoscopy of small intestine (10/20/11) Venous catheterization, not elsewhere classified (12/26/13) Assessment and Plan (1) Monoclonal gammopathy of undetermined significance Current visit: Yes Status: Acute 63-year-old woman with a longstanding history of MGUS. She has no evidence of anemia, renal insufficiency or hypercalcemia. Her kappa light chains have been very stable over the last several years. She has no evidence of progression and no symptoms related to her gammopathy. I think she is at very low risk for progression. She will return to clinic in 1 year for follow-up.
--- NOTE | 2019-11-18 15:48 | PC.NURSE ---
CALL FROM STATING PATIENT HAVING STOMACH PAINS RELATED TO HER GASTRIC PARESIS, MIGRAINE LIKE HEADACHE WITH NAUSEAU AND SOME VERTIGO - ALL SYMPTOMS HE STATES WHICH SHE HAS A HISTORY OF. THIS NURSE ASKED TO CALL PATIENT'S PRIMARY FOR FURTHER INSTRUCTION/ASSISTANCE.
--- NOTE | 2019-12-25 15:39 | P.PNONC_ITS ---
PN -Subjective Interval history: ID/CC: 64 year old with 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 Since then patient has been on active surveillance. Since her previous visit, patient overall has been doing well without any new events except that probably in August or September of 2019, patient sustained a heart attack. She was evaluated and treated at [facility] and underwent stent placement. Patient otherwise denies any new musculoskeletal pain. Denies shortness of breath or chest pain. Denies abdominal pain, diarrhea, or constipation. - Patient Self-Reported Symptoms SR Musculoskeletal issues: Muscle weakness, Muscle pain or cramps, Difficulty walking, Bone pain SR Neuro issues: Numbness or tingling, Difficulty balancing - Additional ROS All systems PM: reviewed and no additional remarkable complaints except as stated (Those mentioned in HIstory of Present Illness, Interval History and Patient Self-Reported Symptoms.) Home Medications and Allergies Home Medications Medication Instructions Recorded Confirmed Type allopurinol 300 mg PO BEDTIME #0 04/14/13 07/08/19 History omeprazole 40 mg PO BID #0 04/14/13 07/08/19 History Lantus Solostar U-100 Insulin 49 unit SQ BEDTIME 04/23/18 07/08/19 History atorvastatin 40 mg PO DAILY 10/01/18 07/08/19 History furosemide 20 mg PO DAILY 10/01/18 07/08/19 History insulin lispro [Humalog KwikPen 0 unit SUBCUT DIRECTED 10/01/18 07/08/19 History Insulin] gabapentin enacarbil [Horizant] 600 mg PO QPM 07/08/19 07/08/19 History amlodipine 5 mg PO DAILY 12/25/19 12/25/19 History aspirin 81 mg PO DAILY 12/25/19 12/25/19 History clopidogrel 75 mg PO DAILY 12/25/19 12/25/19 History metoprolol succinate 100 mg PO DAILY 12/25/19 12/25/19 History pantoprazole 40 mg PO DAILY 12/25/19 12/25/19 History Allergies Allergy/AdvReac Type Severity Reaction Status Date / Time tetanus and diphtheria Allergy Severe HOSPITALIZED Verified 07/08/19 16:10 toxoids CHILD [tetanus & diphtheria toxoids] metoclopramide [From REGLAN] Allergy Intermediate Tremors Verified 07/08/19 16:10 Penicillins Allergy Mild RASH Verified 07/08/19 16:10 ciprofloxacin AdvReac Severe ACHILLES Verified 07/08/19 16:10 TENDON RUPTURE levofloxacin AdvReac Severe ACHILLES Verified 07/08/19 16:10 TENDON RUPTURE Exam Vital signs: 12/25/19 15:58 Last Vital Signs Temp 97.8 F 12/25/19 15:41 Pulse 85 12/25/19 15:41 Resp 16 12/25/19 15:41 BP 150/73 H 12/25/19 15:41 Pulse Ox 96 12/25/19 15:41 Narrative: ECOG 1 Vitals above reviewed Constitutional: well developed, and well nourished, and well groomed, not in any acute respiratory distress, pleasant and cooperative. HEENT: NCAT, EOMI, PERRLA. Anicteric sclera. Neck: Supple and symmetrical, no palpable masses. No palpable thyromegaly. Respiratory: No use of accessory muscles. CTAB, no wheezes. Cardiovascular: RRR, S1 and S2 normal, 3/6 SM at aortic area. No edema of lower extremities. Abdomen: Soft, NTND, no palpable masses. No palpable hepatosplenomegaly. No hernia. Lymphatic: no palpable palpable lymph nodes in the neck, axillae Musculoskeletal: normal gait and station Neurological: CN II-XII grossly intact. No focal motor or sensory deficit. Psychiatric: Normal judgment and insight. AOx3. Normal memory (recent and remote). Normal mood and affect. Results - Imaging Additional studies: Procedures Excisional debridement of wound, infection, or burn (12/26/13) Injection or infusion of other therapeutic or prophylactic substance (05/07/14) Nonexcisional debridement of wound, infection or burn (12/26/13) Other endoscopy of small intestine (10/20/11) Venous catheterization, not elsewhere classified (12/26/13) Assessment and Plan (1) Monoclonal gammopathy of undetermined significance 64-year-old woman with a longstanding history of MGUS since 2012. I reviewed the lab results with the patient. Patient does not have any anemia, thrombocytopenia or leukopenia. No kidney damage, and no hypercalcemia. There is no M spike. The serum free light chain ratio has remained stable and follow- up below 20. Clinically patient does not have any worrisome signs or symptoms. I talked with the patient that I will continue current active surveillance about once a year. Plan: RTC in one year, CBC, CMP, LDH, B2M, SFLC, SPEP, IFIX one week prior to the visit.
[2019-12-25 15:41] VITALS: BP 150/73; PULSE 85; RESP 16; TEMP 36.6; O2SAT 96
== END ==
PROVIDERS: Family Provider Family Medicine; PCP Family Medicine; Visit Provider Internal Medicine Hematology & Oncology
DX: D47.2 Monoclonal gammopathy (principal); I25.2 Old myocardial infarction; Z95.5 Presence of coronary angioplasty implant and graft
CPT/HCPCS: 99214

== ENCOUNTER → 2020-07-05 13:12 | Outpatient (CLI) | payer MEDICARE, OTHER, SELFPAY ==
--- NOTE | 2020-07-05 | DI.MG.S_ITS ---
BILATERAL DIGITAL DIAGNOSTIC MAMMOGRAM 3D/2D: 07/05/2020 CLINICAL: Left breast pain. Comparison is made to exams dated: 06/09/2015 mammogram, 07/04/2010 mammogram, and 03/26/2009 mammogram - [facility]. The tissue of both breasts is predominantly fatty. Screening views and left ML view performed. There are benign vascular calcifications in both breasts. No significant masses, calcifications, or other findings are seen in either breast. There has been no significant interval change. IMPRESSION: BENIGN There is no mammographic evidence of malignancy. A 1 year screening mammogram is recommended. This exam was interpreted at Station ID: [id number]. NOTE: For mammograms, a report in lay terms will be sent to the patient. Approximately 15% of breast malignancies will not be visualized mammographically. In the management of a palpable breast mass, a negative mammogram must not discourage biopsy of a clinically suspicious lesion. Electronically Signed By: Linwood Barron acr/:07/05/2020 14:00:41 letter sent: Normal Exam ACR BI-RADS Category 2: Benign Finding(s) [id number]
== END ==
PROVIDERS: Family Provider Family Medicine; PCP Family Medicine; Referring Provider Family Medicine; Visit Provider Family Medicine
DX: N64.4 Mastodynia (principal)
CPT/HCPCS: 77066; G0279